=== PATIENT | male | born 1935 | race African-American/Black ===

== ENCOUNTER → 2017-01-01 | Outpatient (CLI) | payer MEDICARE, OTHER ==
[~2017-01-01] MED LIST: ASPI81CH43 PO; ATOR10TA PO; CHOL100029 PO; DORZ1SOL2 OP; METF-312 PO; NIFE90TA30 PO; POTA10TA34 PO; [UNRECOGNIZED DRUG - CODE] PO
[2017-01-01 09:33] LABS: Basophils # (auto) 0 uL; Basophils % (auto) 0.3 % (0.0-2.0); DEFINITIVE VIEW TRANSMISSION; Eosinophils # (auto) 0.3 uL; Eosinophils % (auto) 6.1 % (0.0-7.0); Hematocrit 37.3 % (41.0-53.0); Hemoglobin 11.7 g/dL (13.5-17.5); Lymphocytes # (auto) 1.4 uL; Lymphocytes % (auto) 25.7 % (10.0-50.0); Mean Corpuscular Hemoglobin 26.7 pg (28.0-32.0); Mean Corpuscular Hgb Conc. 31.3 g/dL (32.0-36.0); Mean Corpuscular Volume 85.2 fL (80.0-100.0); Mean Platelet Volume 8.7 fL (7.4-10.4); Monocytes # (auto) 0.6 uL; Monocytes % (auto) 11.6 % (0.0-12.0); Neutrophils # (auto) 3.1 uL; Neutrophils % (auto) 56.3 % (37.0-80.0); Platelet Count (auto) 202 10^3/uL (140-450); Red Cell Distribution Width 14.7 % (11.6-16.0); White Blood Cell 5.4 10^3/uL (4.4-10.8)
[2017-01-01 09:52] LABS: Urine Bilirubin Negative (Negative); Urine Blood Negative /uL (Negative); Urine Color Yellow (Yellow); Urine Glucose Normal (Normal); Urine Ketone Negative (Negative); Urine Mucus FEW (None Seen); Urine Nitrite Negative (Negative); Urine RBC <1 /hpf (0 - 3); Urine Squamous Epithelial Cell FEW /hpf (<5); Urine Urobilinogen Normal (Negative); Urine pH 6.5 (5.0-8.0)
[2017-01-01 10:10] LABS: Albumin 3.8 g/dL (3.4-5.0); BUN/Creatinine Ratio 17.3; Bilirubin, Total 0.4 mg/dL (0.2-1.0); Calcium 8.9 mg/dL (8.5-10.1); Total Protein 7.2 g/dL (6.4-8.2)
[2017-01-01 10:23] LABS: Potassium 3.9 mmol/L (3.5-5.1)
== END | disposition home or self-care (01) ==
LOC: LAB 08:43
DX: E11.42 Type 2 diabetes mellitus with diabetic polyneuropathy (principal); Z00.00 Encounter for general adult medical examination without abnormal findings; D69.6 Thrombocytopenia, unspecified; I10 Essential (primary) hypertension; C61 Malignant neoplasm of prostate
CPT/HCPCS: 36415; 80053; 80061; 81001; 82043; 82570; 83036; 84153; 84439; 84443; 85025

== ENCOUNTER 2017-04-26 16:10 | Inpatient (IN) | payer MEDICARE, OTHER ==
[~2017-04-26] VITALS: Ht 177.8 cm; Wt 78.0 kg
[2017-04-26 17:19] LABS: Basophils # (auto) 0 uL; Basophils % (auto) 0.3 % (0.0-2.0); Eosinophils # (auto) 0.3 uL; Eosinophils % (auto) 4.1 % (0.0-7.0); Hematocrit 35.8 % (41.0-53.0); Hemoglobin 11.7 g/dL (13.5-17.5); Lymphocytes # (auto) 1.9 uL; Mean Corpuscular Hemoglobin 27.8 pg (28.0-32.0); Mean Corpuscular Hgb Conc. 32.7 g/dL (32.0-36.0); Mean Corpuscular Volume 85.2 fL (80.0-100.0); Mean Platelet Volume 9.1 fL (7.4-10.4); Monocytes # (auto) 0.7 uL; Monocytes % (auto) 11.9 % (0.0-12.0); Neutrophils # (auto) 3.3 uL; Neutrophils % (auto) 52.7 % (37.0-80.0); Platelet Count (auto) 189 10^3/uL (140-450); Red Cell Distribution Width 14.9 % (11.6-16.0); White Blood Cell 6.2 10^3/uL (4.4-10.8)
[2017-04-26 17:32] LABS: INR 0.96 (0.9-1.15); Partial Thromboplastin Time 27.5 sec (22.64-33.71); Prothrombin Time 10.5 sec (9.37-12.3)
[2017-04-26 17:48] LABS: Albumin 3.3 g/dL (3.4-5.0); Anion Gap 11 (5-15); Aspartate Aminotransferase 20 U/L (15-37); Blood Urea Nitrogen 17 mg/dL (7-18); Carbon Dioxide 24 mmol/L (21-32); Chloride 108 mmol/L (98-107); GFR African American 131 mL/min; GFR Non-African American 108 mL/min; Glucose 140 mg/dL (74-106); Magnesium 2.1 mg/dL (1.6-2.6); Potassium 3.6 mmol/L (3.5-5.1); Sodium 143 mmol/L (136-145)
[2017-04-26 17:53] LABS: Alkaline Phosphatase 49 U/L (45-117); Bilirubin, Total 0.2 mg/dL (0.2-1.0)
[2017-04-26] MEDS ORDERED: SODIUM CHLORIDE 0.9% 1,000 ML IV SCH (21:46)
[2017-04-26 21:52] LABS: Urine RBC None Seen /hpf (0 - 3)
[2017-04-26] MEDS ORDERED: TEMAZEPAM 15 MG CAP PO PRN (22:00)
[2017-04-26] MEDS ORDERED: HYDROcodone-ACET 5/325MG TAB PO PRN (22:00)
[2017-04-26] MEDS ORDERED: ONDANSETRON HCL 4 MG/2 ML VIAL IV PRN (22:00)
[2017-04-26] MEDS ORDERED: DOCUSATE SOD 100 MG CAP PO PRN (22:00)
[2017-04-26] MEDS ORDERED: MORPHINE SULF INJ 2 MG/ML SYRINGE 1ML IV PRN (22:00)
[2017-04-26] MEDS ORDERED: NITROGLYCERIN 0.4 MG SL TAB SL PRN (22:00)
[2017-04-26] MEDS ORDERED: hydrALAZINE HCL 20 MG/ML VL IV ONE (22:30)
[2017-04-26 22:32] LABS: Urine Bilirubin Negative (Negative); Urine Blood Negative /uL (Negative); Urine Color Yellow (Yellow); Urine Glucose Normal (Normal); Urine Ketone Negative (Negative); Urine Nitrite Negative (Negative); Urine Urobilinogen Normal (Negative); Urine pH 7.5 (5.0-8.0)
[2017-04-26 23:00] VITALS: BP 154/68
[2017-04-27] MEDS: metFORMIN HYDROCHLORIDE 850 MG TAB PO SCH ×2 (00:04→08:26)
[2017-04-27] MEDS: ATORVASTATIN 20 MG TAB PO SCH ×2 (00:05→21:53)
[2017-04-27 04:59] VITALS: BP 128/60
[2017-04-27 05:34] LABS: Basophils # (auto) 0 uL; Basophils % (auto) 0.2 % (0.0-2.0); Eosinophils # (auto) 0.2 uL; Eosinophils % (auto) 3.7 % (0.0-7.0); Hematocrit 34.4 % (41.0-53.0); Hemoglobin 11.7 g/dL (13.5-17.5); Lymphocytes # (auto) 1.4 uL; Lymphocytes % (auto) 23.2 % (10.0-50.0); Mean Corpuscular Hemoglobin 28.6 pg (28.0-32.0); Mean Corpuscular Hgb Conc. 33.9 g/dL (32.0-36.0); Mean Corpuscular Volume 84.5 fL (80.0-100.0); Mean Platelet Volume 8.5 fL (7.4-10.4); Monocytes # (auto) 0.7 uL; Monocytes % (auto) 12.5 % (0.0-12.0); Neutrophils # (auto) 3.6 uL; Neutrophils % (auto) 60.4 % (37.0-80.0); Platelet Count (auto) 191 10^3/uL (140-450); Red Cell Distribution Width 14.9 % (11.6-16.0); White Blood Cell 5.9 10^3/uL (4.4-10.8)
[2017-04-27] MEDS: hydrALAZINE HCL 25 MG TAB PO SCH ×4 (05:56→18:15)
[2017-04-27 06:01] LABS: Potassium 3.5 mmol/L (3.5-5.1)
[2017-04-27 06:09] LABS: Albumin 3.1 g/dL (3.4-5.0); BUN/Creatinine Ratio 20.7; Calcium 8.7 mg/dL (8.5-10.1)
[2017-04-27 06:10] LABS: Bilirubin, Total 0.3 mg/dL (0.2-1.0); Total Protein 6.5 g/dL (6.4-8.2)
[2017-04-27 08:00] VITALS: BP 139/65
[2017-04-27] MEDS ORDERED: metFORMIN HYDROCHLORIDE 850 MG TAB PO SCH (08:00)
[2017-04-27] MEDS ORDERED: metFORMIN HYDROCHLORIDE 500 MG TAB PO SCH (08:00)
[2017-04-27 09:15] VITALS: BP 139/65
[2017-04-27] MEDS ORDERED: LORazepam 0.5 MG TAB PO ONE (09:15)
[2017-04-27] MEDS: LOSARTAN POTASSIUM 50 MG TAB PO SCH (09:32)
[2017-04-27] MEDS: HCTZ 25 MG TAB PO SCH (09:33)
[2017-04-27] MEDS: NIFEdipine ER 30 MG TAB PO SCH (09:33)
[2017-04-27] MEDS: POTASSIUM CHL 10 Meq TABLET PO SCH (09:33)
[2017-04-27] MEDS: CHOLECALCIFEROL (VITD3) 1,000 UNIT TAB PO SCH (09:34)
[2017-04-27] MEDS ORDERED: HYDROCHLOROTHIAZIDE PO SCH (10:00)
[2017-04-27] MEDS ORDERED: ATORVASTATIN 20 MG TAB PO SCH ×2 (10:00→22:00)
[2017-04-27] MEDS ORDERED: ASPirin 81 mg TAB PO SCH (10:00)
[2017-04-27] MEDS ORDERED: IRBESARTAN PO SCH (10:00)
[2017-04-27] MEDS: DORZOLAM-TIMOLOL(2/0.5%) OPTH(EYE) SOLN 10ML EACHEYE SCH (12:50)
[2017-04-27 13:34] VITALS: BP 149/80
[2017-04-27] MEDS ORDERED: LORazepam 2MG/ML-1ML VIAL IV ONE (14:30)
[2017-04-27] MEDS ORDERED: ALPRAZolam 0.25 MG TAB PO PRN (14:30)
[2017-04-27 15:01] LABS: Cholesterol 152 mg/dL (< 200); HDL Cholesterol 52 mg/dL (40-59); LDL Cholesterol 89 mg/dL (< 100); Triglycerides 86 mg/dL (< 150)
[2017-04-27 17:01] VITALS: BP 133/72
[2017-04-27] MEDS: MORPHINE SULF INJ 2 MG/ML SYRINGE 1ML IV PRN ×2 (17:43→21:55)
[2017-04-27] MEDS: GABAPENTIN 100 MG CAP PO SCH (21:53)
[2017-04-27 22:05] VITALS: BP 135/69
[2017-04-28] MEDS: hydrALAZINE HCL 25 MG TAB PO SCH ×4 (00:11→18:04)
[2017-04-28 05:00] VITALS: BP 110/40
[2017-04-28 09:00] VITALS: BP 149/70
[2017-04-28] MEDS ORDERED: LORazepam 2MG/ML-1ML VIAL IV PRN (09:00)
[2017-04-28] MEDS: LOSARTAN POTASSIUM 50 MG TAB PO SCH (10:02)
[2017-04-28] MEDS: GABAPENTIN 100 MG CAP PO SCH ×2 (10:02→21:46)
[2017-04-28] MEDS: HCTZ 25 MG TAB PO SCH (10:02)
[2017-04-28] MEDS: POTASSIUM CHL 10 Meq TABLET PO SCH (10:02)
[2017-04-28] MEDS: CHOLECALCIFEROL (VITD3) 1,000 UNIT TAB PO SCH (10:03)
[2017-04-28] MEDS: ASPIRIN-DIPYRIDAMOLE (25/200MG) CAPSULE PO SCH ×2 (10:03→21:46)
[2017-04-28] MEDS: NIFEdipine ER 30 MG TAB PO SCH (10:03)
[2017-04-28] MEDS: DORZOLAM-TIMOLOL(2/0.5%) OPTH(EYE) SOLN 10ML EACHEYE SCH (10:05)
[2017-04-28 13:00] VITALS: BP 148/79
[2017-04-28 17:00] VITALS: BP 127/59
[2017-04-28 22:00] VITALS: BP 148/71
[2017-04-28] MEDS ORDERED: ATORVASTATIN 20 MG TAB PO SCH (22:00)
[2017-04-29] MEDS: hydrALAZINE HCL 25 MG TAB PO SCH ×3 (00:03→12:46)
[2017-04-29 05:00] VITALS: BP 136/66
[2017-04-29 07:08] LABS: Cholesterol 157 mg/dL (< 200); HDL Cholesterol 56 mg/dL (40-59); LDL Cholesterol 87 mg/dL (< 100); Triglycerides 82 mg/dL (< 150)
[2017-04-29 09:00] VITALS: BP 150/75
[2017-04-29] MEDS: ASPIRIN-DIPYRIDAMOLE (25/200MG) CAPSULE PO SCH (10:34)
[2017-04-29] MEDS: NIFEdipine ER 30 MG TAB PO SCH (10:34)
[2017-04-29] MEDS: GABAPENTIN 100 MG CAP PO SCH (10:34)
[2017-04-29] MEDS: LOSARTAN POTASSIUM 50 MG TAB PO SCH (10:35)
[2017-04-29] MEDS: CHOLECALCIFEROL (VITD3) 1,000 UNIT TAB PO SCH (10:36)
[2017-04-29] MEDS: DORZOLAM-TIMOLOL(2/0.5%) OPTH(EYE) SOLN 10ML EACHEYE SCH (10:36)
[2017-04-29] MEDS: HCTZ 25 MG TAB PO SCH (10:36)
[2017-04-29] MEDS: POTASSIUM CHL 10 Meq TABLET PO SCH (10:36)
[2017-04-29 12:52] VITALS: BP 131/63
== END 2017-04-29 16:00 | disposition home or self-care (01) | DRG 65 ==
LOC: ER 16:10 → TELE 16:11 → TELE-WESTW 22:57
PROVIDERS: ADMIT Emergency Medicine; ATTEND Internal Medicine
DX: I63.9 Cerebral infarction, unspecified (principal); G81.91 Hemiplegia, unspecified affecting right dominant side; I10 Essential (primary) hypertension; E78.5 Hyperlipidemia, unspecified; E11.42 Type 2 diabetes mellitus with diabetic polyneuropathy; D64.9 Anemia, unspecified; F17.210 Nicotine dependence, cigarettes, uncomplicated; R26.2 Difficulty in walking, not elsewhere classified; R47.1 Dysarthria and anarthria; H40.9 Unspecified glaucoma; F41.9 Anxiety disorder, unspecified; K59.00 Constipation, unspecified; G47.00 Insomnia, unspecified; R26.89 Other abnormalities of gait and mobility; Z79.899 Other long term (current) drug therapy; Z82.3 Family history of stroke; Z82.49 Family history of ischemic heart disease and other diseases of the circulatory system; Z83.3 Family history of diabetes mellitus; Z85.46 Personal history of malignant neoplasm of prostate; Z80.8 Family history of malignant neoplasm of other organs or systems; Z88.0 Allergy status to penicillin; Z79.82 Long term (current) use of aspirin
CPT/HCPCS: 36415; 70450; 70545; 70551; 71010; 80053; 80061; 81001; 82962; 83735; 84484; 85025; 85610; 85730; 93005; 93306; 93886; 94761; 96374; 97110; 97116; 97163; 97530

== ENCOUNTER → 2017-06-11 | Outpatient (CLI) | payer MEDICARE, OTHER ==
[~2017-06-11] MED LIST changes: -METF-312 PO; +METF-370 PO
== END | disposition home or self-care (01) ==
LOC: LAB 15:34
DX: C61 Malignant neoplasm of prostate (principal)
CPT/HCPCS: 84153

== ENCOUNTER → 2017-07-08 | Outpatient (CLI) | payer MEDICARE, OTHER ==
[2017-07-08 15:05] LABS: Body Fluid Polymorphonuclear 55 %
== END | disposition home or self-care (01) ==
LOC: LAB 09:53
DX: M10.00 Idiopathic gout, unspecified site (principal)
CPT/HCPCS: 36415; 84550; 87070; 87205; 89051; 89060

== ENCOUNTER → 2017-07-21 | Outpatient (CLI) | payer MEDICARE, OTHER ==
[2017-07-21 11:14] LABS: Albumin 4.1 g/dL (3.4-5.0); BUN/Creatinine Ratio 21.1; Bilirubin, Total 0.5 mg/dL (0.2-1.0); Calcium 9.5 mg/dL (8.5-10.1); Potassium 3.8 mmol/L (3.5-5.1)
== END | disposition home or self-care (01) ==
LOC: LAB 09:59
PROVIDERS: ATTEND Psychiatry & Neurology Neurology
DX: G46.3 Brain stem stroke syndrome (principal); R26.1 Paralytic gait
CPT/HCPCS: 36415; 80053

== ENCOUNTER → 2017-12-07 | Outpatient (CLI) | payer MEDICARE, OTHER | END | disposition home or self-care (01) | LOC: LAB 12:46 | DX: C61 Malignant neoplasm of prostate (principal) | CPT/HCPCS: 84153 ==

== ENCOUNTER → 2017-12-23 | Outpatient (CLI) | payer MEDICARE, OTHER | END | disposition home or self-care (01) | LOC: XY 08:07 | PROVIDERS: ATTEND Internal Medicine | DX: I08.0 Rheumatic disorders of both mitral and aortic valves (principal); I10 Essential (primary) hypertension | CPT/HCPCS: 93306 ==

== ENCOUNTER → 2018-02-16 | Outpatient (CLI) | payer MEDICARE, OTHER ==
[2018-02-16 09:31] LABS: Basophils # (auto) 0 uL; Basophils % (auto) 0.4 % (0.0-2.0); Eosinophils # (auto) 0.2 uL; Hematocrit 32.4 % (41.0-53.0); Hemoglobin 10.5 g/dL (13.5-17.5); Lymphocytes # (auto) 1.4 uL; Lymphocytes % (auto) 26.6 % (10.0-50.0); Mean Corpuscular Hemoglobin 28.5 pg (28.0-32.0); Mean Corpuscular Hgb Conc. 32.4 g/dL (32.0-36.0); Monocytes # (auto) 0.8 uL; Monocytes % (auto) 14.4 % (0.0-12.0); Neutrophils # (auto) 2.9 uL; Neutrophils % (auto) 54.6 % (37.0-80.0); Nucleated Red Blood Cells % 0.1 %; Platelet Count (auto) 150 10^3/uL (140-450); Red Blood Cells 3.69 10^6/uL (4.5-5.90); Red Cell Distribution Width 14.2 % (11.8-14.3); White Blood Cell 5.3 10^3/uL (4.4-10.8)
[2018-02-16 09:38] LABS: Urine Bacteria NONE SEEN /hpf (None Seen); Urine Blood Negative /uL (Negative); Urine Specific Gravity 1.018 (1.001-1.035); Urine WBC 3 /hpf (0 - 3)
[2018-02-16 10:01] LABS: Albumin 3.6 g/dL (3.4-5.0); BUN/Creatinine Ratio 22.1; Bilirubin, Total 0.5 mg/dL (0.2-1.0); Calcium 8.5 mg/dL (8.5-10.1); Potassium 4.5 mmol/L (3.5-5.1)
[2018-02-16 10:34] LABS: Free T4 (Free Thyroxine) 1.32 ng/dL (0.89-1.76)
[2018-02-16 10:35] LABS: T3 Total 1.14 ng/mL (0.60-1.81)
[2018-02-18 10:31] LABS: Hepatitis B Surface Antigen Negative (Negative)
[2018-02-18 10:54] LABS: Hepatitis B Core IgM Negative; Hepatitis C Antibody Negative (Negative)
[2018-02-18 10:56] LABS: Hepatitis A Ab IgM Negative
== END | disposition home or self-care (01) ==
LOC: LAB 08:59
PROVIDERS: ATTEND Internal Medicine
DX: I10 Essential (primary) hypertension (principal); N28.1 Cyst of kidney, acquired; E11.9 Type 2 diabetes mellitus without complications; R79.89 Other specified abnormal findings of blood chemistry; Z79.899 Other long term (current) drug therapy
CPT/HCPCS: 36415; 80053; 80061; 80074; 81001; 82607; 83036; 84403; 84439; 84443; 84480; 85025

== ENCOUNTER → 2018-03-01 | Outpatient (CLI) | payer MEDICARE, OTHER | END | disposition home or self-care (01) | LOC: LAB 08:21 | PROVIDERS: ATTEND Internal Medicine | DX: Z01.812 Encounter for preprocedural laboratory examination (principal); I10 Essential (primary) hypertension; E11.9 Type 2 diabetes mellitus without complications; Z79.899 Other long term (current) drug therapy | CPT/HCPCS: 36415; 82565; 84520 ==

== ENCOUNTER → 2018-03-22 | Outpatient (CLI) | payer MEDICARE, OTHER ==
[2018-03-22 09:38] LABS: Basophils # (auto) 0 uL; Basophils % (auto) 0.4 % (0.0-2.0); Eosinophils # (auto) 0.2 uL; Eosinophils % (auto) 3.7 % (0.0-7.0); Hemoglobin 10.9 g/dL (13.5-17.5); Lymphocytes # (auto) 0.9 uL; Mean Corpuscular Hemoglobin 28.7 pg (28.0-32.0); Mean Corpuscular Hgb Conc. 33.1 g/dL (32.0-36.0); Mean Corpuscular Volume 86.8 fL (80.0-100.0); Monocytes # (auto) 0.9 uL; Neutrophils # (auto) 3.7 uL; Neutrophils % (auto) 63.9 % (37.0-80.0); Nucleated Red Blood Cells % 0.1 %; Platelet Count (auto) 113 10^3/uL (140-450); Red Cell Distribution Width 14.3 % (11.8-14.3); White Blood Cell 5.8 10^3/uL (4.4-10.8)
[2018-03-22 10:42] LABS: Albumin 3.4 g/dL (3.4-5.0); BUN/Creatinine Ratio 13.6; Bilirubin, Total 0.3 mg/dL (0.2-1.0); Calcium 9.3 mg/dL (8.5-10.1); Potassium 4.6 mmol/L (3.5-5.1); Total Protein 6.9 g/dL (6.4-8.2)
== END | disposition home or self-care (01) ==
LOC: LAB 08:49
PROVIDERS: ATTEND Physician Assistant
DX: I10 Essential (primary) hypertension (principal); E78.5 Hyperlipidemia, unspecified; E11.9 Type 2 diabetes mellitus without complications; I65.23 Occlusion and stenosis of bilateral carotid arteries; R35.1 Nocturia; Z85.46 Personal history of malignant neoplasm of prostate; Z79.899 Other long term (current) drug therapy
CPT/HCPCS: 36415; 80053; 80061; 83036; 84153; 85025

== ENCOUNTER → 2018-10-25 | Outpatient (CLI) | payer MEDICARE, OTHER ==
[~2018-10-25] MED LIST changes: -POTA10TA34 PO; +POTA1TAB61 PO
[2018-10-25 10:33] LABS: Cholesterol 239 mg/dL (< 200)
[2018-10-25 10:36] LABS: Creatine Kinase IFCC 144 U/L (39-308); HDL Cholesterol 56 mg/dL (40-59); LDL Cholesterol 171 mg/dL (< 100); Triglycerides 129 mg/dL (< 150)
== END | disposition home or self-care (01) ==
LOC: LAB 09:06
PROVIDERS: ATTEND Psychiatry & Neurology Neurology
DX: I63.9 Cerebral infarction, unspecified (principal); E11.9 Type 2 diabetes mellitus without complications
CPT/HCPCS: 36415; 80061; 82550; 83036

== ENCOUNTER → 2018-12-14 | Outpatient (CLI) | payer MEDICARE, OTHER ==
[2018-12-14 10:47] LABS: Anion Gap 5 (5-15); BUN/Creatinine Ratio 19.7; Blood Urea Nitrogen 23 mg/dL (7-18); Calcium 8.9 mg/dL (8.5-10.1); Carbon Dioxide 27 mmol/L (21-32); Chloride 109 mmol/L (98-107); GFR African American > 60 mL/min; GFR Non-African American > 60 mL/min; Glucose 140 mg/dL (74-106); Potassium 3.8 mmol/L (3.5-5.1); Sodium 141 mmol/L (136-145)
== END | disposition home or self-care (01) ==
LOC: LAB 10:17
DX: I10 Essential (primary) hypertension (principal); R97.20 Elevated prostate specific antigen [PSA]
CPT/HCPCS: 36415; 80048

== ENCOUNTER → 2019-01-20 | Outpatient (CLI) | payer MEDICARE, OTHER ==
[2019-01-20 12:16] LABS: Basophils # (auto) 0 uL; Basophils % (auto) 0.7 % (0.0-2.0); Eosinophils # (auto) 0.3 uL; Hemoglobin 10.3 g/dL (13.5-17.5); Lymphocytes # (auto) 1.2 uL; Monocytes # (auto) 0.6 uL; Neutrophils # (auto) 2.4 uL; White Blood Cell 4.5 10^3/uL (4.4-10.8)
[2019-01-20 12:18] LABS: Eosinophils % (auto) 6.1 % (0.0-7.0); Hematocrit 31.8 % (41.0-53.0); Lymphocytes % (auto) 26.8 % (10.0-50.0); Mean Corpuscular Hemoglobin 26.5 pg (28.0-32.0); Mean Corpuscular Hgb Conc. 32.5 g/dL (32.0-36.0); Mean Corpuscular Volume 81.6 fL (80.0-100.0); Monocytes % (auto) 12.9 % (0.0-12.0); Neutrophils % (auto) 53.5 % (37.0-80.0); Nucleated Red Blood Cells % 0.1 %; Platelet Count (auto) 195 10^3/uL (140-450); Red Cell Distribution Width 15.6 % (11.8-14.3)
[2019-01-20 12:36] LABS: CRP High Sensitivity 0.39 mg/dL (< 0.3)
== END | disposition home or self-care (01) ==
LOC: LAB 11:03
PROVIDERS: ATTEND Psychiatry & Neurology Neurology
DX: G72.9 Myopathy, unspecified (principal); I10 Essential (primary) hypertension; E11.9 Type 2 diabetes mellitus without complications
CPT/HCPCS: 36415; 80061; 82550; 84075; 84080; 84450; 84460; 85025; 85652; 86038; 86141

== ENCOUNTER 2020-06-21 07:47 | Emergency (ER) | payer MEDICARE, OTHER ==
[~2020-06-21] VITALS: Ht 154.9 cm; Wt 73.9 kg
[~2020-06-21 07:47] MED LIST changes: -NIFE90TA30 PO; +NIFE90TA49 PO
[2020-06-21 08:40] LABS: Basophils # (auto) 0.1 10 ^3/uL (0-0.2); Eosinophils # (auto) 0.3 10 ^3/uL (0-0.8); Hematocrit 32.8 % (41.0-53.0); Hemoglobin 10.6 g/dL (13.5-17.5); Lymphocytes # (auto) 1.1 10 ^3/uL (0.4-5.4); Mean Corpuscular Hgb Conc. 32.2 g/dL (32.0-36.0); Monocytes # (auto) 0.9 10 ^3/uL (0-1.3); Red Blood Cells 4.08 10^6/uL (4.5-5.90)
[2020-06-21 08:42] LABS: Basophils % (auto) 0.8 % (0.0-2.0); Eosinophils % (auto) 3.7 % (0.0-7.0); Lymphocytes % (auto) 13.5 % (10.0-50.0); Mean Corpuscular Hemoglobin 25.8 pg (28.0-32.0); Mean Corpuscular Volume 80.3 fL (80.0-100.0); Monocytes % (auto) 11.6 % (0.0-12.0); Neutrophils # (auto) 5.5 10 ^3/uL (1.6-8.6); Neutrophils % (auto) 70.4 % (37.0-80.0); Nucleated Red Blood Cells % 0.1 %; Platelet Count (auto) 328 10^3/uL (140-450); Red Cell Distribution Width 13.8 % (11.8-14.3); White Blood Cell 7.8 10^3/uL (4.4-10.8)
[2020-06-21 08:56] LABS: INR 1.01 (0.9-1.15); Partial Thromboplastin Time 31.3 sec (23.64-32.05)
[2020-06-21 09:01] LABS: Albumin 3.5 g/dL (3.4-5.0); Anion Gap 6 (5-15); BUN/Creatinine Ratio 15.3; Blood Urea Nitrogen 17 mg/dL (7-18); Carbon Dioxide 26 mmol/L (21-32); Chloride 102 mmol/L (98-107); GFR African American 81 mL/min; GFR Non-African American 67 mL/min; Glucose 135 mg/dL (74-106); Potassium 3.7 mmol/L (3.5-5.1); Sodium 134 mmol/L (136-145)
[2020-06-21 09:06] LABS: Alanine Aminotransferase 17 U/L (16-61); Alkaline Phosphatase 66 U/L (45-117); Aspartate Aminotransferase 14 U/L (15-37); Bilirubin, Total 0.4 mg/dL (0.2-1.0); Total Protein 7.8 g/dL (6.4-8.2)
[2020-06-21 09:26] VITALS: BP 115/60
[2020-06-21] MEDS ORDERED: levoFLOXacin 500 MG TAB PO ONE (09:45)
== END 2020-06-21 11:33 | disposition home or self-care (01) ==
LOC: ER 07:47
DX: J18.9 Pneumonia, unspecified organism (principal); D63.8 Anemia in other chronic diseases classified elsewhere; E11.9 Type 2 diabetes mellitus without complications; E78.5 Hyperlipidemia, unspecified; I10 Essential (primary) hypertension; Z86.73 Personal history of transient ischemic attack (TIA), and cerebral infarction without residual deficits; Z88.0 Allergy status to penicillin; Z20.828 Contact with and (suspected) exposure to other viral communicable diseases
CPT/HCPCS: 36415; 71046; 80053; 84484; 85025; 85610; 85730; 93005; 99285; U0003

== ENCOUNTER 2020-06-22 04:47 | Emergency (ER) | payer MEDICARE, OTHER ==
[~2020-06-22] VITALS: Ht 177.8 cm; Wt 73.9 kg
[2020-06-22 05:01] VITALS: BP 161/74
[2020-06-22 05:53] LABS: Basophils # (auto) 0.1 10 ^3/uL (0-0.2); Eosinophils # (auto) 0.2 10 ^3/uL (0-0.8); Lymphocytes # (auto) 0.8 10 ^3/uL (0.4-5.4); Neutrophils # (auto) 5.6 10 ^3/uL (1.6-8.6); White Blood Cell 7.6 10^3/uL (4.4-10.8)
[2020-06-22 05:55] LABS: Basophils % (auto) 1.2 % (0.0-2.0); Eosinophils % (auto) 2.4 % (0.0-7.0); Hematocrit 31.2 % (41.0-53.0); Hemoglobin 10.2 g/dL (13.5-17.5); Lymphocytes % (auto) 10.7 % (10.0-50.0); Mean Corpuscular Hgb Conc. 32.6 g/dL (32.0-36.0); Mean Corpuscular Volume 79.6 fL (80.0-100.0); Monocytes % (auto) 12.7 % (0.0-12.0); Platelet Count (auto) 292 10^3/uL (140-450); Red Blood Cells 3.93 10^6/uL (4.5-5.90); Red Cell Distribution Width 13.9 % (11.8-14.3)
[2020-06-22 06:03] LABS: Albumin 3.2 g/dL (3.4-5.0); Anion Gap 8 (5-15); Blood Urea Nitrogen 16 mg/dL (7-18); Carbon Dioxide 24 mmol/L (21-32); Chloride 101 mmol/L (98-107); Glucose 136 mg/dL (74-106); Magnesium 2.4 mg/dL (1.6-2.6); Potassium 3.9 mmol/L (3.5-5.1); Sodium 133 mmol/L (136-145)
[2020-06-22 06:12] LABS: Alanine Aminotransferase 18 U/L (16-61); Alkaline Phosphatase 64 U/L (45-117); Aspartate Aminotransferase 25 U/L (15-37); BUN/Creatinine Ratio 14.8; Bilirubin, Total 0.4 mg/dL (0.2-1.0); GFR African American 84 mL/min; GFR Non-African American 69 mL/min; Total Protein 7.5 g/dL (6.4-8.2)
== END 2020-06-22 06:00 | disposition left against medical advice (07) ==
LOC: EDBD 04:47 → ER 04:47
DX: R06.02 Shortness of breath (principal); Z53.21 Procedure and treatment not carried out due to patient leaving prior to being seen by health care provider
CPT/HCPCS: 36415; 80053; 82728; 83735; 83880; 84484; 85025; 93005

== ENCOUNTER 2020-07-13 14:54 | Inpatient (IN) | payer MEDICARE, OTHER ==
[~2020-07-13] VITALS: Ht 177.8 cm; Wt 64.5 kg
[2020-07-13 16:15] LABS: Basophils # (auto) 0 10 ^3/uL (0-0.2); Basophils % (auto) 0.5 % (0.0-2.0); Eosinophils # (auto) 0.2 10 ^3/uL (0-0.8); Eosinophils % (auto) 2.6 % (0.0-7.0); Hematocrit 31.5 % (41.0-53.0); Hemoglobin 10.1 g/dL (13.5-17.5); Lymphocytes # (auto) 1.3 10 ^3/uL (0.4-5.4); Mean Corpuscular Hemoglobin 25.3 pg (28.0-32.0); Mean Corpuscular Hgb Conc. 32.2 g/dL (32.0-36.0); Mean Corpuscular Volume 78.7 fL (80.0-100.0); Monocytes # (auto) 0.8 10 ^3/uL (0-1.3); Neutrophils # (auto) 6.1 10 ^3/uL (1.6-8.6); Neutrophils % (auto) 71.9 % (37.0-80.0); Platelet Count (auto) 206 10^3/uL (140-450); White Blood Cell 8.5 10^3/uL (4.4-10.8)
[2020-07-13] MEDS ORDERED: SPIRONOLACTONE 25 MG TAB PO ONE (16:15)
[2020-07-13] MEDS ORDERED: NIFEdipine 10 MG CAP PO ONE (16:15)
[2020-07-13 16:25] LABS: Albumin 3.2 g/dL (3.4-5.0); Anion Gap 8 (5-15); Blood Urea Nitrogen 15 mg/dL (7-18); Calcium 8.9 mg/dL (8.5-10.1); Carbon Dioxide 24 mmol/L (21-32); Chloride 104 mmol/L (98-107); Glucose 237 mg/dL (74-106); Potassium 3.6 mmol/L (3.5-5.1); Sodium 136 mmol/L (136-145)
[2020-07-13 16:33] LABS: Alanine Aminotransferase 25 U/L (16-61); Alkaline Phosphatase 75 U/L (45-117); Aspartate Aminotransferase 14 U/L (15-37); BUN/Creatinine Ratio 15.3; Bilirubin, Total 0.3 mg/dL (0.2-1.0); GFR African American 94 mL/min; GFR Non-African American 77 mL/min; Lactate Dehydrogenase 166 U/L (87-241); Total Protein 6.8 g/dL (6.4-8.2)
[2020-07-13 16:37] LABS: INR 0.99 (0.9-1.15)
[2020-07-13 18:47] LABS: Urine WBC None Seen /hpf (0 - 3)
[2020-07-13 19:15] LABS: Urine Bacteria NONE SEEN /hpf (None Seen); Urine Blood Negative /uL (Negative); Urine Mucus FEW (None Seen); Urine Specific Gravity 1.016 (1.001-1.035)
[2020-07-13] MEDS ORDERED: NITROGLYCERIN 0.4 MG SL TAB SL PRN (19:15)
[2020-07-13] MEDS ORDERED: ALBUTEROL SULF 2.5 MG/0.5ML(0.5%) NEB SOLN NEB PRN (19:15)
[2020-07-13] MEDS ORDERED: ACETAMINOPHEN 500 MG TAB PO PRN (19:15)
[2020-07-13] MEDS ORDERED: DEXTROSE (50%) 50ML SYRG IV PRN (19:15)
[2020-07-13] MEDS ORDERED: MORPHINE SULF INJ 2 MG/ML SYRINGE 1ML IV PRN ×2 (19:15)
[2020-07-13] MEDS ORDERED: TEMAZEPAM 15 MG CAP PO PRN (19:15)
[2020-07-13] MEDS ORDERED: ONDANSETRON HCL 4 MG/2 ML VIAL IV PRN (19:15)
--- NOTE | 2020-07-13 20:00 | NUR ---
Respiratory note: PT ASSESSED FOR PRN MED NEB TX. HR 81, RR 20, SPO2 95% ON RA. NO S/S OF ANY RESPIRATORY DISTRESS NOTED. ADVISED PT TO CALL IF TX IS NEEDED.
[2020-07-13 20:51] VITALS: BP 112/58
[2020-07-13] MEDS: DORZOLAM-TIMOLOL(2/0.5%) OPTH(EYE) SOLN 10ML OP SCH (22:12)
[2020-07-13] MEDS: GABAPENTIN 100 MG CAP PO SCH (22:12)
[2020-07-13] MEDS: CLINDAMYCIN 600MG IV 50 ML IV SCH (22:12)
[2020-07-13] MEDS: ACCU-CHEK COMFORT CURVE STRIP VI SCH (22:12)
[2020-07-13] MEDS: CARVEDILOL 3.125 MG TAB PO SCH (22:13)
[2020-07-13] MEDS: InsuLIN REG 1unit/0.01ml Soln (100units/ml) SC SCH (22:25)
--- NOTE | 2020-07-13 23:00 | NUR ---
TELE admit from ED pt arrive via wheelchair awake alert and oriented x4. pt on room air with no distress noted or expressed. pt oriented to this nurse as well as room, bed control, restroom and use of call light. pt updated on plan of care. pt denies any pain. pt reports he is short of breath upon exertion. pt is tele 9 showing nsr at 70bpm. pt bed locked, low and 2x rails up. call light in reach, this nurse to round q1hr and prn. pt encouraged to call as needed.
[2020-07-14] MEDS ORDERED: IPRATROPIUM BROM 0.5 MG/2.5ML INH SOL NEB SCH
[2020-07-14] MEDS ORDERED: ALBUTEROL SULF 2.5 MG/0.5ML(0.5%) NEB SOLN NEB SCH
[2020-07-14 05:24] LABS: Basophils # (auto) 0.1 10 ^3/uL (0-0.2); Basophils % (auto) 0.7 % (0.0-2.0); Eosinophils # (auto) 0.2 10 ^3/uL (0-0.8); Eosinophils % (auto) 3.3 % (0.0-7.0); Hematocrit 31.8 % (41.0-53.0); Hemoglobin 10.1 g/dL (13.5-17.5); Lymphocytes # (auto) 1.2 10 ^3/uL (0.4-5.4); Lymphocytes % (auto) 16.9 % (10.0-50.0); Mean Corpuscular Hemoglobin 25.4 pg (28.0-32.0); Mean Corpuscular Hgb Conc. 31.9 g/dL (32.0-36.0); Mean Corpuscular Volume 79.7 fL (80.0-100.0); Monocytes # (auto) 0.9 10 ^3/uL (0-1.3); Monocytes % (auto) 12.1 % (0.0-12.0); Neutrophils # (auto) 4.9 10 ^3/uL (1.6-8.6); Nucleated Red Blood Cells % 0.1 %; Platelet Count (auto) 169 10^3/uL (140-450); Red Blood Cells 3.99 10^6/uL (4.5-5.90); Red Cell Distribution Width 14.5 % (11.8-14.3); White Blood Cell 7.3 10^3/uL (4.4-10.8)
[2020-07-14 05:26] VITALS: BP 129/72
--- NOTE | 2020-07-14 06:00 | NUR ---
Patient came from COVID-Unit RM 234 to MED/TELE RM 292B. Patient brought to unit with all belongings via wheelchair. Patient AOx4, no s/s of distress or SOB and no pain noted. Will continue to monitor.
[2020-07-14] MEDS: CLINDAMYCIN 600MG IV 50 ML IV SCH ×3 (06:08→20:58)
[2020-07-14] MEDS: InsuLIN REG 1unit/0.01ml Soln (100units/ml) SC SCH ×4 (06:43→21:43)
[2020-07-14] MEDS: ACCU-CHEK COMFORT CURVE STRIP VI SCH ×4 (06:43→21:43)
--- NOTE | 2020-07-14 07:00 | NUR ---
Endorsed care to Patricia RN
--- NOTE | 2020-07-14 07:30 | NUR ---
Opening Shift Note: Assumed care of patient, awake and alert. No S/S of distress/SOB or pain. Bed in lowest locked position, side rails up x 2, call light within reach. Patient instructed on POC and to call for assist PRN, will continue to monitor for changes Q1hr and PRN.
[2020-07-14 09:00] VITALS: BP 149/81
[2020-07-14] MEDS: POTASSIUM CHL 10 Meq TABLET PO SCH (09:45)
[2020-07-14] MEDS: CHOLECALCIFEROL (VITD3) 1,000UNIT=25mCg TAB PO SCH (09:45)
[2020-07-14] MEDS: ATORVASTATIN 20 MG TAB PO SCH (09:45)
[2020-07-14] MEDS: levoFLOXacin 500MG 100 ML IV SCH (09:45)
[2020-07-14] MEDS: CARVEDILOL 3.125 MG TAB PO SCH ×2 (09:46→22:03)
[2020-07-14] MEDS: NIFEdipine ER 30 MG TAB PO SCH (09:46)
[2020-07-14] MEDS: IRBESARTAN HYDROCHLOROTHIAZIDE PO SCH (10:00)
--- NOTE | 2020-07-14 10:28 | NUR ---
DR. REHMAN: Dr. Mae at bedside. Discussed POC with patient.
[2020-07-14] MEDS: DORZOLAM-TIMOLOL(2/0.5%) OPTH(EYE) SOLN 10ML OP SCH ×2 (12:19→21:53)
[2020-07-14 13:00] VITALS: BP 145/67
[2020-07-14 17:00] VITALS: BP 132/74
--- NOTE | 2020-07-14 18:46 | NUR ---
CLOSING NOTE: Patient resting in bed. No S/S of distress at this time. Care endorsed to NOC RN.
--- NOTE | 2020-07-14 18:46 | NUR ---
PT ASSESSED FOR PRN MED NEB TX. SPO2 96% ON RA, HR 78. PT DENIES ANY RESPIRATORY DISTRESS. NO TX INDICATED. PT DENIES USE OF MED NEB OR INHALER AT HOME. PT IS AWARE TO HAVE RT PAGED IF NEEDED.
--- NOTE | 2020-07-14 19:28 | NUR ---
Opening Shift Note: Assumed care of patient, awake and alert. No S/S of distress/SOB. Bed in lowest locked position, side rails, up x 2, call light within reach. Patient instructed on POC and to call for assistance PRN, will continue to monitor for changes Q1hr and PRN.
[2020-07-14 22:00] VITALS: BP 130/69
[2020-07-14] MEDS: GABAPENTIN 100 MG CAP PO SCH (22:03)
--- NOTE | 2020-07-15 02:26 | NUR ---
Patient rounding No sob or distress noted. Patient is asleep, chest evenly rising, call light within reach, will continue to monitor.
[2020-07-15 05:00] VITALS: BP 116/65
[2020-07-15] MEDS: CLINDAMYCIN 600MG IV 50 ML IV SCH ×3 (06:00→21:09)
[2020-07-15] MEDS: ACCU-CHEK COMFORT CURVE STRIP VI SCH ×4 (06:11→21:10)
[2020-07-15] MEDS: InsuLIN REG 1unit/0.01ml Soln (100units/ml) SC SCH ×4 (06:11→21:20)
--- NOTE | 2020-07-15 06:59 | NUR ---
Closing note Endorsed care to day shift RN no sob or distress noted.
--- NOTE | 2020-07-15 07:13 | NUR ---
Opening Shift Note: Assumed care of patient. Patient asleep at this time. No S/S of distress/SOB or pain. Bed in lowest locked position, side rails up x 2, call light within reach. Patient will be instructed on POC and to call for assist PRN, will continue to monitor for changes Q1hr and PRN.
[2020-07-15] MEDS: levoFLOXacin 500MG 100 ML IV SCH (09:24)
[2020-07-15 09:25] VITALS: BP 135/62
[2020-07-15] MEDS: CARVEDILOL 3.125 MG TAB PO SCH ×2 (09:25→21:10)
[2020-07-15] MEDS: IRBESARTAN HYDROCHLOROTHIAZIDE PO SCH (09:25)
[2020-07-15] MEDS: DORZOLAM-TIMOLOL(2/0.5%) OPTH(EYE) SOLN 10ML OP SCH ×2 (09:25→21:09)
[2020-07-15] MEDS: ATORVASTATIN 20 MG TAB PO SCH (09:26)
[2020-07-15] MEDS: POTASSIUM CHL 10 Meq TABLET PO SCH (09:26)
[2020-07-15] MEDS: NIFEdipine ER 30 MG TAB PO SCH (09:26)
[2020-07-15] MEDS: CHOLECALCIFEROL (VITD3) 1,000UNIT=25mCg TAB PO SCH (09:27)
--- NOTE | 2020-07-15 10:29 | NUR ---
DR. REHMAN: Dr. Mae at bedside. Discussed POC with patient.
--- NOTE | 2020-07-15 10:33 | NUR ---
IV insertion: IV access obtained, via clean sterile technique by inserting 22 gauge catheter at right hand after 2 attempta. IV secured properly. No trauma to site. Patient tolerated well. IV removal: Left AC IV DC'd with clean sterile technique, catheter fully intact. Pressure dressing applied to site. Patient tolerated well.
[2020-07-15 13:00] VITALS: BP 118/69
[2020-07-15 16:39] VITALS: BP 124/68
--- NOTE | 2020-07-15 18:50 | NUR ---
CLOSING NOTE: Patient resting in bed. No S/S of distress. Care endorsed.
--- NOTE | 2020-07-15 19:25 | NUR ---
Opening shift note Assumed care of patient who is A&Ox4, respirations even and non-labored with no s/s of distress. Discussed POC with patient who verbalized understanding. Bed in lowest locked position with 2 side rails up, call light within reach. Advised patient to call for assistance. Will continue to monitor Q1hr and PRN.
[2020-07-15] MEDS ORDERED: ZOLPIDEM TARTRATE 5 MG TAB PO PRN (21:00)
[2020-07-15] MEDS: GABAPENTIN 100 MG CAP PO SCH (21:10)
[2020-07-15 22:00] VITALS: BP 133/58
[2020-07-16 05:00] VITALS: BP 125/69
[2020-07-16] MEDS: InsuLIN REG 1unit/0.01ml Soln (100units/ml) SC SCH ×4 (05:58→21:57)
[2020-07-16] MEDS: ACCU-CHEK COMFORT CURVE STRIP VI SCH ×4 (05:58→21:46)
[2020-07-16] MEDS: CLINDAMYCIN 600MG IV 50 ML IV SCH ×3 (06:06→21:45)
[2020-07-16] MEDS: IRBESARTAN HYDROCHLOROTHIAZIDE PO SCH (08:54)
[2020-07-16 09:00] VITALS: BP 142/70
--- NOTE | 2020-07-16 09:26 | NUR ---
PT IN ULTRASOUND FOR A THORACENTESIS WITH DR HERNÁNDEZ. VSS 136/58-71-16-96%. 1800 ML OF BURBUNDY COLORED FLUID REMOVED AND SENT TO LAB.
[2020-07-16] MEDS: ATORVASTATIN 20 MG TAB PO SCH (10:26)
[2020-07-16] MEDS: DORZOLAM-TIMOLOL(2/0.5%) OPTH(EYE) SOLN 10ML OP SCH ×2 (10:26→21:45)
[2020-07-16] MEDS: POTASSIUM CHL 10 Meq TABLET PO SCH (10:26)
[2020-07-16] MEDS: levoFLOXacin 500MG 100 ML IV SCH (10:26)
[2020-07-16] MEDS: NIFEdipine ER 30 MG TAB PO SCH (10:26)
[2020-07-16] MEDS: CARVEDILOL 3.125 MG TAB PO SCH ×2 (10:27→21:44)
[2020-07-16] MEDS: CHOLECALCIFEROL (VITD3) 1,000UNIT=25mCg TAB PO SCH (10:27)
[2020-07-16] MEDS: traMADol HCL 50 MG TAB PO PRN ×3 (11:30→21:45)
[2020-07-16 13:00] VITALS: BP 120/66
[2020-07-16 16:44] VITALS: BP 112/54
--- NOTE | 2020-07-16 18:58 | NUR ---
CLOSING NOTE: Patient resting in bed. No S/S of distress at this time. Care endorsed.
--- NOTE | 2020-07-16 19:30 | NUR ---
Opening shift note Assumed care of patient who is A&OX4, respirations even and non-labored with no s/s of distress. Discussed POC with patient who verbalized understanding. Bed in lowest locked position with 2 side rails up, urinal bedside, call light within reach. Advised patient to call for assistance. Will continue to monitor.
[2020-07-16] MEDS: GABAPENTIN 100 MG CAP PO SCH (21:46)
--- NOTE | 2020-07-16 22:00 | NUR ---
Pain Patient c/o 05/09 right posterior back pain from procedure earlier. Administered 50 mg Tramadol per EMAR. Will continue to monitor.
[2020-07-16 22:21] VITALS: BP 136/77
--- NOTE | 2020-07-16 22:30 | NUR ---
Pain Reassessed Patient resting with eyes closed, respirations even and non-labored with no s/s of distress. Will continue to monitor.
[2020-07-17] MEDS: ACCU-CHEK COMFORT CURVE STRIP VI SCH ×2 (04:58→11:29)
[2020-07-17] MEDS: InsuLIN REG 1unit/0.01ml Soln (100units/ml) SC SCH ×2 (04:58→11:29)
[2020-07-17 05:00] VITALS: BP 101/67
[2020-07-17] MEDS: CLINDAMYCIN 600MG IV 50 ML IV SCH ×2 (05:45→13:10)
--- NOTE | 2020-07-17 07:30 | NUR ---
Opening Shift Note Assumed care of patient, awake and alert. Respirations are even and unlabored on room air. No S/S of distress or SOB. Patient updated on POC and instructed to call for assistance as needed, patient verbalized understanding. Bed locked in lowest position, side rails up x 2, call light within reach. Will continue to monitor for changes Q1hr and PRN.
[2020-07-17] MEDS: traMADol HCL 50 MG TAB PO PRN (08:26)
[2020-07-17 09:00] VITALS: BP 117/60
[2020-07-17] MEDS: CHOLECALCIFEROL (VITD3) 1,000UNIT=25mCg TAB PO SCH (09:14)
[2020-07-17] MEDS: POTASSIUM CHL 10 Meq TABLET PO SCH (09:14)
[2020-07-17] MEDS: ATORVASTATIN 20 MG TAB PO SCH (09:14)
[2020-07-17] MEDS: DORZOLAM-TIMOLOL(2/0.5%) OPTH(EYE) SOLN 10ML OP SCH (09:15)
[2020-07-17] MEDS: CARVEDILOL 3.125 MG TAB PO SCH (09:15)
[2020-07-17] MEDS: levoFLOXacin 500MG 100 ML IV SCH (09:15)
[2020-07-17] MEDS: IRBESARTAN HYDROCHLOROTHIAZIDE PO SCH (09:15)
[2020-07-17] MEDS: NIFEdipine ER 30 MG TAB PO SCH (09:15)
[2020-07-17 12:42] VITALS: BP 117/64
[2020-07-17 13:45] VITALS: BP 117/64
--- NOTE | 2020-07-17 15:15 | NUR ---
DISCHARGE HOME Discharge instructions given as ordered. Encourage to follow up with PMD as instructed. All questions and concerns addressed. Patient verbalized understanding. Medication reconciliation form completed and copy given to patient. IV removed with catheter intact, pressure dressing applied. Telemetry unit returned to ICU. Patient taken to vehicle via wheelchair with all personal belongings, accompanied by staff. No distress noted at time of departure.
== END 2020-07-17 15:15 | disposition home or self-care (01) | DRG 194 ==
LOC: ER 14:54 → TELE 14:55 → TELE-EAST 21:55 → TELE-WESTW 07-14 06:23
PROVIDERS: ADMIT Internal Medicine; ATTEND Family Medicine
PROC: 0W993ZX Drainage of Right Pleural Cavity, Percutaneous Approach, Diagnostic (ICD-10-PCS; principal; 2020-07-16)
DX: J18.9 Pneumonia, unspecified organism (principal); J91.8 Pleural effusion in other conditions classified elsewhere; J98.11 Atelectasis; I10 Essential (primary) hypertension; E11.65 Type 2 diabetes mellitus with hyperglycemia; D63.8 Anemia in other chronic diseases classified elsewhere; E11.21 Type 2 diabetes mellitus with diabetic nephropathy; I73.9 Peripheral vascular disease, unspecified; E11.51 Type 2 diabetes mellitus with diabetic peripheral angiopathy without gangrene; E78.5 Hyperlipidemia, unspecified; M19.90 Unspecified osteoarthritis, unspecified site; E78.00 Pure hypercholesterolemia, unspecified; M51.34 Other intervertebral disc degeneration, thoracic region; E11.42 Type 2 diabetes mellitus with diabetic polyneuropathy; Z86.73 Personal history of transient ischemic attack (TIA), and cerebral infarction without residual deficits; Z87.891 Personal history of nicotine dependence; Z85.46 Personal history of malignant neoplasm of prostate; Z88.0 Allergy status to penicillin; Z79.82 Long term (current) use of aspirin; Z79.4 Long term (current) use of insulin; Z20.828 Contact with and (suspected) exposure to other viral communicable diseases
CPT/HCPCS: 10022; 36415; 71045; 71250; 76604; 76942; 80053; 81001; 82550; 82728; 82962; 83036; 83615; 83880; 83986; 84484; 85025; 85610; 85730; 86141; 87040; 87070; 87205; 87426; 89051; G0378; J1815; J1956; J3490

== ENCOUNTER 2020-07-26 19:40 | Inpatient (IN) | payer MEDICARE, OTHER ==
[~2020-07-26] VITALS: Ht 177.8 cm; Wt 71.5 kg
[2020-07-26 20:26] LABS: Urine Bacteria NONE SEEN /hpf (None Seen); Urine Blood Negative /uL (Negative); Urine Hyaline Cast FEW /lpf (0 - 2); Urine Mucus FEW (None Seen); Urine Specific Gravity 1.024 (1.001-1.035); Urine WBC <1 /hpf (0 - 3)
[2020-07-26 22:23] LABS: Basophils # (auto) 0.1 10 ^3/uL (0-0.2); Eosinophils # (auto) 0.2 10 ^3/uL (0-0.8); Monocytes # (auto) 1.2 10 ^3/uL (0-1.3)
[2020-07-26 22:26] LABS: Basophils % (auto) 0.8 % (0.0-2.0); Eosinophils % (auto) 2.3 % (0.0-7.0); Hematocrit 27.9 % (41.0-53.0); Lymphocytes # (auto) 0.8 10 ^3/uL (0.4-5.4); Lymphocytes % (auto) 7.4 % (10.0-50.0); Mean Corpuscular Hgb Conc. 32.4 g/dL (32.0-36.0); Mean Corpuscular Volume 77.1 fL (80.0-100.0); Monocytes % (auto) 11.2 % (0.0-12.0); Neutrophils # (auto) 8.2 10 ^3/uL (1.6-8.6); Neutrophils % (auto) 78.3 % (37.0-80.0); Platelet Count (auto) 315 10^3/uL (140-450); Red Blood Cells 3.62 10^6/uL (4.5-5.90); Red Cell Distribution Width 14.8 % (11.8-14.3); White Blood Cell 10.5 10^3/uL (4.4-10.8)
[2020-07-26 22:38] LABS: INR 0.99 (0.9-1.15); Partial Thromboplastin Time 29.6 sec (23.0-31.2)
[2020-07-26 22:41] LABS: Anion Gap 6 (5-15); Blood Urea Nitrogen 21 mg/dL (7-18); Calcium 8.7 mg/dL (8.5-10.1); Carbon Dioxide 24 mmol/L (21-32); Chloride 101 mmol/L (98-107); Glucose 143 mg/dL (74-106); Potassium 4.1 mmol/L (3.5-5.1); Sodium 131 mmol/L (136-145)
[2020-07-26 22:47] LABS: Alanine Aminotransferase 21 U/L (16-61); Alkaline Phosphatase 97 U/L (45-117); Aspartate Aminotransferase 15 U/L (15-37); BUN/Creatinine Ratio 17.4; Bilirubin, Total 0.2 mg/dL (0.2-1.0); GFR African American 73 mL/min; GFR Non-African American 61 mL/min; Total Protein 6.9 g/dL (6.4-8.2)
[2020-07-27] MEDS ORDERED: TELM80TA PO (01:30)
[2020-07-27] MEDS ORDERED: EZET-10 PO (01:30)
[2020-07-27] MEDS ORDERED: SPIR25TA8 PO ×2 (01:30→15:49)
[2020-07-27] MEDS ORDERED: CARV6.2551 PO ×2 (01:30→15:49)
[2020-07-27] MEDS ORDERED: NIFE90TA49 PO (01:30)
[2020-07-27] MEDS ORDERED: HYDR-4298 PO (01:30)
[2020-07-27] MEDS ORDERED: IPRATROPIUM BROM 0.5 MG/2.5ML INH SOL NEB PRN (07:15)
[2020-07-27] MEDS ORDERED: ALBUTEROL SULF 2.5 MG/0.5ML(0.5%) NEB SOLN NEB PRN (07:15)
[2020-07-27] MEDS ORDERED: ACETAMINOPHEN 325 MG TAB PO PRN (07:15)
[2020-07-27] MEDS ORDERED: DEXTROSE (50%) 50ML SYRG IV PRN (07:15)
[2020-07-27] MEDS ORDERED: DOCUSATE SOD 100 MG CAP PO PRN (07:15)
[2020-07-27] MEDS ORDERED: ONDANSETRON HCL 4 MG/2 ML VIAL IV PRN (07:15)
[2020-07-27] MEDS: InsuLIN REG 1unit/0.01ml Soln (100units/ml) SC SCH ×5 (08:00→23:59)
[2020-07-27] MEDS: ACCU-CHEK COMFORT CURVE STRIP VI SCH ×4 (08:13→19:55)
[2020-07-27 08:15] LABS: BUN/Creatinine Ratio 15.8; Calcium 8.5 mg/dL (8.5-10.1); Potassium 3.8 mmol/L (3.5-5.1)
[2020-07-27 09:17] LABS: Basophils # (auto) 0 10 ^3/uL (0-0.2); Basophils % (auto) 0.5 % (0.0-2.0); Eosinophils # (auto) 0.2 10 ^3/uL (0-0.8); Eosinophils % (auto) 2.4 % (0.0-7.0); Hematocrit 27.7 % (41.0-53.0); Hemoglobin 9.1 g/dL (13.5-17.5); Lymphocytes # (auto) 0.7 10 ^3/uL (0.4-5.4); Lymphocytes % (auto) 7.9 % (10.0-50.0); Mean Corpuscular Hemoglobin 25.1 pg (28.0-32.0); Mean Corpuscular Hgb Conc. 32.9 g/dL (32.0-36.0); Mean Corpuscular Volume 76.3 fL (80.0-100.0); Monocytes % (auto) 11.3 % (0.0-12.0); Neutrophils # (auto) 6.6 10 ^3/uL (1.6-8.6); Neutrophils % (auto) 77.9 % (37.0-80.0); Platelet Count (auto) 279 10^3/uL (140-450); Red Blood Cells 3.63 10^6/uL (4.5-5.90); Red Cell Distribution Width 14.6 % (11.8-14.3); White Blood Cell 8.5 10^3/uL (4.4-10.8)
--- NOTE | 2020-07-27 09:22 | NUR ---
Report Received report from ER. Holden
[2020-07-27] MEDS ORDERED: MIDAZOLAM HCL 1MG/1ML-2 ML VIAL IV ONE (09:45)
[2020-07-27] MEDS ORDERED: fentaNYL CITRATE 100 MCG/2 ML VL IV ONE (09:45)
[2020-07-27] MEDS: AZITHROMYCIN 500MG/ 250ML 250 ML IV SCH (10:00)
[2020-07-27] MEDS ORDERED: DexAMETHasone SOD PHOS 10MG/1ML VIAL INJ IV SCH (10:00)
[2020-07-27] MEDS: cefTRIAXone 1GM/50ML D5W 50 ML IV SCH (10:00)
--- NOTE | 2020-07-27 10:04 | NUR ---
Patient Arrived Patient arrived to unit, no signs of distress at this time. Respirations even and unlabored. Patient denies shortness of breath at this time but per patient, is present during exertion. Call light within reach, safety precautions in place, will continue to monitor. Addendum: 07/27/20 at 1104 by PEDRO BEYER RN RN Spoke with , Zabrina Quintanilla, all questions answered. Will continue to monitor.
[2020-07-27 10:21] VITALS: BP 177/40
[2020-07-27] MEDS ORDERED: LIDOCAINE 2%HCL (LOCAL ANESTH.) INJ 20ML MDV ONE (10:47)
--- NOTE | 2020-07-27 11:00 | NUR ---
Off Unit Patient taken to radiology for procedure.
[2020-07-27 13:00] VITALS: BP 142/72
--- NOTE | 2020-07-27 13:00 | NUR ---
at Station Dr. Gutierrez at station discussing patient's plan of care. New orders received, will carry out. Addendum: 07/27/20 at 1534 by PEDRO BEYER RN RN MD notified of patient's requesting to speak with her regarding update.
--- NOTE | 2020-07-27 13:47 | NUR ---
back tender insulation board Spoke with director regulatory agencyVioleta. Per Violeta, drainage fluid not sent to micro at this time as patient had drainage sent recently (from previous visit). Per Violeta, forms for pleurex equipment in chart for MD to sign for delivery of equipment on discharge.
[2020-07-27] MEDS ORDERED: IOHEXOL 300 MG/ML 100ML BOTTLE IJ ONE (13:50)
[2020-07-27] MEDS ORDERED: MORPHINE SULF INJ 2 MG/ML SYRINGE 1ML IV PRN (14:00)
[2020-07-27] MEDS ORDERED: GADOTERIDOL 279.3mg/mL 20ml Vial IV ONE (14:06)
[2020-07-27] MEDS: FUROSEMIDE 40 MG/4 ML VIAL IV SCH (14:12)
[2020-07-27] MEDS: HYDROcodone-ACET 5/325MG TAB PO PRN (14:13)
--- NOTE | 2020-07-27 14:15 | NUR ---
Patient Off Unit Patient off unit for CT/MRI.
--- NOTE | 2020-07-27 15:10 | NUR ---
Patient Returned Patient returned to unit. No signs of distress at this time. Respirations even and unlabored. Safety precautions in place, call light within reach. Will continue to monitor.
[2020-07-27] MEDS ORDERED: METF-370 PO (15:49)
[2020-07-27] MEDS ORDERED: DORZ1SOL OP (15:49)
--- NOTE | 2020-07-27 16:45 | NUR ---
MRSA Swab sent crown and bridge technician aware.
[2020-07-27 17:00] VITALS: BP 125/71
[2020-07-27] MEDS: MORPHINE SULF INJ 2 MG/ML SYRINGE 1ML IV PRN (18:14)
--- NOTE | 2020-07-27 18:49 | NUR ---
Respiratory note: AT BEDSIDE FOR PRN MED NEB TX ASSESSMENT, PT PRESENTING NO RESPIRATORY DISTRESS AT THIS TIME. PT SITTING UP IN BED TALKING ON THE PHONE, NO RESPIRATORY DISTRESS NOTED. HR 81, SPO2 95% ON ROOM AIR, RR 17, BS DIMINISHED. MED NEB TX NOT INDICATED AT THIS TIME. PT MADE AWARE TO HAVE RT PAGE IF NEEDED, WILL CONTINUE TO MONITOR.
[2020-07-27 22:00] VITALS: BP 143/63
[2020-07-28] MEDS: InsuLIN REG 1unit/0.01ml Soln (100units/ml) SC SCH ×6 (04:00→23:30)
[2020-07-28] MEDS: ACCU-CHEK COMFORT CURVE STRIP VI SCH ×7 (04:28→23:30)
[2020-07-28 04:58] VITALS: BP 131/72
--- NOTE | 2020-07-28 07:30 | NUR ---
Opening Shift Note Assumed patient care from NOC RN, Malick. Patient is currently sitting up in bed, feet dangling. No signs of distress at this time, denying shortness of breath. RR 16, SpO2 96%. Patient is AOx4 and cooperative. Patient states he has 7/10 pain at Pleurex incision site. Site dressing is clean, dry and intact. Warm to touch and dry. Patient assisted with repositioning and offered pain medication, see EMAR, discussed side effects with patient and encouraged to call when ambulating. Patient verbalized understanding. Safety precautions in place, call light within reach. Will continue to monitor.
[2020-07-28] MEDS: MORPHINE SULF INJ 2 MG/ML SYRINGE 1ML IV PRN ×2 (07:38→14:23)
[2020-07-28] MEDS: cefTRIAXone 1GM/50ML D5W 50 ML IV SCH (07:38)
[2020-07-28 08:00] VITALS: BP 134/79
--- NOTE | 2020-07-28 08:27 | NUR ---
Breakfast Patient made RN aware that he has had issues with decreased appetite. Dietary consult has been ordered, per protocol. Patient has eaten 100% of breakfast at this time, states "This is the most I've eaten for breakfast in a while." Patient encouraged to continue to maintain increased oral intake and benefits of maintaining adequate nutrition, patient verbalized understanding and is agreeable at this time.
[2020-07-28] MEDS: AZITHROMYCIN 500MG/ 250ML 250 ML IV SCH (08:56)
[2020-07-28] MEDS: FUROSEMIDE 40 MG/4 ML VIAL IV SCH (08:56)
--- NOTE | 2020-07-28 10:27 | NUR ---
Respiratory note: PT ASSESSED FOR PRN TX. HR 92, RR 18, POX 98% ON RA, BS ARE CLEAR. NO SOB OR DISTRESS NOTED. PT NOTIFY TO CALL RT FOR TX.
--- NOTE | 2020-07-28 11:20 | NUR ---
at Bedside Dr. Mooney at bedside discussing plan of care with patient. New orders received.
[2020-07-28 12:00] VITALS: BP 120/70
--- NOTE | 2020-07-28 12:25 | NUR ---
at Station Dr. Mae at station discussing patient's plan of care. Per Dr. Mae, do not drain Pleurex today as patient was drained yesterday; new orders received for patient to have Pleurex drained tomorrow 07/29 with orders for cytology tomorrow. Per Dr. Mae: copy of pathology report was given to Dr. Gutierrez (by Dr. Mae). Will notify Dr. Mooney.
--- NOTE | 2020-07-28 12:33 | NUR ---
Called Left message with Dr. Mooney's answering service regarding Dr. Mae orders for fluid drainage and cytology to be obtained tomorrow.
--- NOTE | 2020-07-28 13:00 | NUR ---
Nutrition Assessment Notes Please refer to link for full assessment notes. Est Energy needs: 2263-1029 kcals (20-23 kcal/kgBW) Est Protein needs: 73-80 gms/day (1.0-1.1 gm/kgBW) Will continue to monitor and reassess prn. Addendum: 07/28/20 at [address] Amended: Links added.
--- NOTE | 2020-07-28 13:09 | NUR ---
Called Spoke with Dr. Mooney regarding update/new orders from Dr. Mae, Dr. Mooney is now aware, no new orders at this time.
--- NOTE | 2020-07-28 14:38 | NUR ---
MD Called Spoke with Dr. Mae regarding troponin lab draw. Per MD, cancel order at this time. Will notify labor economics professor.
[2020-07-28 16:00] VITALS: BP 120/64
[2020-07-28] MEDS: HYDROcodone-ACET 5/325MG TAB PO PRN (16:28)
--- NOTE | 2020-07-28 19:20 | NUR ---
Opening Shift Note Received report and assumed care of patient. Patient is awake and alert. No signs or symptoms of distress noted. Patient has some mild pain, but tolerating well. No pain medication has been requested at this time. HOB at 30 degrees, bed locked in lowest position, and call light within reach. Instructed patient on plan of care and to call for assistance as needed. Will continue to monitor.
--- NOTE | 2020-07-28 19:44 | NUR ---
Respiratory note: ASSESSMENT FOR PRN MED NEB TX. PT PRESENTING NO RESPIRATORY DISTRESS AT THIS TIME. HR 87, SPO2 96% ON ROOM AIR, RR 17 BS DIMINISHED. MED NEB TX NOT INDICATED AT THIS TIME. PT AWARE TO HAVE RT PAGED IF NEEDED, WILL CONTINUE TO MONITOR.
[2020-07-28 21:00] VITALS: BP 106/61
[2020-07-29] MEDS: InsuLIN REG 1unit/0.01ml Soln (100units/ml) SC SCH ×5 (03:57→21:45)
[2020-07-29] MEDS: ACCU-CHEK COMFORT CURVE STRIP VI SCH ×5 (03:57→21:45)
[2020-07-29 05:00] VITALS: BP 101/47
--- NOTE | 2020-07-29 07:00 | NUR ---
Report Given to Geri ROACH.
--- NOTE | 2020-07-29 07:30 | NUR ---
Opening Shift Note [facility]. Patient currently out of bed, sitting up in chair. Safety precautions in place, will continue to monitor.
[2020-07-29 08:36] VITALS: BP 112/73
--- NOTE | 2020-07-29 09:00 | NUR ---
at Bedside Dr. Mae at bedside discussing plan of care with patient. New orders received for chest x ray tomorrow, no orders for drainage of pleurex today, per MD drain tomorrow 07/30. Per Dr. Mae, Dr. Gutierrez was given pathology report from previous visit (by Dr. Mae). Per Dr. Mae obtain copy of pathology report for Dr. Mooney on Thursday07/30/2020.
[2020-07-29] MEDS: cefTRIAXone 1GM/50ML D5W 50 ML IV SCH (09:54)
[2020-07-29] MEDS: FUROSEMIDE 40 MG/4 ML VIAL IV SCH (09:55)
[2020-07-29] MEDS: MORPHINE SULF INJ 2 MG/ML SYRINGE 1ML IV PRN ×3 (10:25→21:39)
[2020-07-29] MEDS: AZITHROMYCIN 500MG/ 250ML 250 ML IV SCH (10:30)
[2020-07-29] MEDS: DORZOLAMIDE HCL 2% OPTH(EYE) SOL 10ML EACHEYE SCH ×2 (12:26→21:37)
[2020-07-29 12:33] VITALS: BP 111/72
--- NOTE | 2020-07-29 13:45 | NUR ---
PT ASSESSED FOR PRN MED NEB, PT ON RA WITH SPO2 93%, HR 86, RR 15 WITH CLEAR BS. NO DISTRESS NOTED. WILL CONTINUE TO MONITOR PT.
--- NOTE | 2020-07-29 14:00 | NUR ---
New IV New IV: 22 gauge to left wrist started by Torito Cardenas RN. IV to left AC discontinued. Catheter intact, pressure dressing applied.
[2020-07-29 16:47] VITALS: BP 126/66
[2020-07-29] MEDS: HYDROcodone-ACET 5/325MG TAB PO PRN (18:37)
--- NOTE | 2020-07-29 19:13 | NUR ---
Respiratory note: ASSESSED PT FOR PRN TX PT WAS AWAKE AND ALERT, NO RESP DISTRESS NOTED. HR 77, RR 16, SPO2 98% ON ROOM AIR.
--- NOTE | 2020-07-29 19:25 | NUR ---
Opening Shift Note Received report and assumed care of patient. Patient is awake and alert. No signs or symptoms of distress noted. Patient has some pain when he lifts his arm up. Patient is till sore and has pain with movement. Patient aware he is not due for pain medication. Per patient, pain is at a tolerable level without movement of right arm. HOB at 30 degrees, bed locked in lowest position, and call light within reach. Instructed patient on plan of care and to call for assistance as needed. Will continue to monitor.
[2020-07-29 20:00] VITALS: BP 126/66
[2020-07-29 22:00] VITALS: BP 129/72
[2020-07-30] VITALS (8 sets, daily range): BP systolic 87–135; BP diastolic 49–67
[2020-07-30] MEDS: InsuLIN REG 1unit/0.01ml Soln (100units/ml) SC SCH ×4 (06:34→21:55)
[2020-07-30] MEDS: ACCU-CHEK COMFORT CURVE STRIP VI SCH ×4 (06:34→21:54)
--- NOTE | 2020-07-30 08:00 | NUR ---
Patient sitting in chair at bedside; eating breakfast. Denies any pain at this time. Patient stable.
[2020-07-30] MEDS: DORZOLAMIDE HCL 2% OPTH(EYE) SOL 10ML EACHEYE SCH ×2 (09:59→21:54)
[2020-07-30] MEDS: cefTRIAXone 1GM/50ML D5W 50 ML IV SCH (09:59)
[2020-07-30] MEDS: FUROSEMIDE 40 MG/4 ML VIAL IV SCH (09:59)
--- NOTE | 2020-07-30 10:00 | NUR ---
Patient resting comfortably in bed with no complaint of pain. Scheduled medications given per order. Patient stable.
[2020-07-30] MEDS: AZITHROMYCIN 500MG/ 250ML 250 ML IV SCH (11:07)
--- NOTE | 2020-07-30 11:08 | NUR ---
Patient sitting in chair at bedside. Denies any pain. Scheduled IV abx given per order. Patient stable.
--- NOTE | 2020-07-30 11:25 | NUR ---
Patient sitting on side of bed with Dr. Gutierrez at bedside. Patient stable.
--- NOTE | 2020-07-30 12:40 | NUR ---
Patient sitting in chair at bedside. Checked blood sugar: 156 mg/dl - will cover per sliding scale.
--- NOTE | 2020-07-30 14:25 | NUR ---
Patient resting comfortably in bed with Dr. Mathias at bedside. Addendum: 07/30/20 at 1601 by MELANI CANTU RN RN Late entry: Doctor at bedside at 1425. Also emptied 300mls of urine from urinal.
--- NOTE | 2020-07-30 15:55 | NUR ---
Patient ambulating in his room. No distress noted. Patient stable.
--- NOTE | 2020-07-30 16:45 | NUR ---
Patient resting in bed with , Zabrina at bedside. Pleurx located in RUQ was drained using sterile technique; 400mls of sanguinous fluid drained. Patient tolerated well. Drainage sent for cytology.
--- NOTE | 2020-07-30 18:10 | NUR ---
Patient resting comfortably in bed with no complaint of pain. Checked blood sugar: 133 mg/dl - will cover per sliding scale.
--- NOTE | 2020-07-30 18:30 | NUR ---
Patient sitting in chair at bedside; eating dinner. Covered per sliding scale. Patient stable throughout shift.
--- NOTE | 2020-07-30 19:30 | NUR ---
Opening Shift Note Received report and assumed care of patient. Patient is awake and alert. No signs or symptoms of distress noted. No pain noted at this time. HOB at 30 degrees, bed locked in lowest position, and call light within reach. Instructed patient on plan of care and to call for assistance as needed. Will continue to monitor.
--- NOTE | 2020-07-30 20:30 | NUR ---
Patient Plural drainage was not sent to lab when noted. On begging of shift, found patient drainage at nursing station. Pleural drainage verified and walked to lab by this nurse.
[2020-07-31] VITALS (7 sets, daily range): BP systolic 125–145; BP diastolic 59–76
--- NOTE | 2020-07-31 02:48 | NUR ---
Patient Requests GI Clarification for Colonoscopy Patient asked to speak with attending doctor to re-consider colonoscopy be done. Patient is open to outpatient colonoscopy if necessary. Social Service consult was also put in for further D/C evaluation.
[2020-07-31] MEDS: InsuLIN REG 1unit/0.01ml Soln (100units/ml) SC SCH ×4 (06:38→22:00)
[2020-07-31] MEDS: ACCU-CHEK COMFORT CURVE STRIP VI SCH ×4 (06:38→23:01)
--- NOTE | 2020-07-31 08:20 | NUR ---
Patient sitting in chair at bedside; eating breakfast. Denies any pain at this time. Patient stable.
[2020-07-31] MEDS: MORPHINE SULF INJ 2 MG/ML SYRINGE 1ML IV PRN ×2 (08:52→23:03)
--- NOTE | 2020-07-31 08:52 | NUR ---
Patient medicated for 10/10 pain at pleur-x site. Patient stable at this time.
[2020-07-31] MEDS: cefTRIAXone 1GM/50ML D5W 50 ML IV SCH (09:22)
[2020-07-31] MEDS: FUROSEMIDE 40 MG/4 ML VIAL IV SCH (09:23)
[2020-07-31] MEDS: DORZOLAMIDE HCL 2% OPTH(EYE) SOL 10ML EACHEYE SCH ×2 (09:23→22:39)
--- NOTE | 2020-07-31 09:25 | NUR ---
Scheduled medication given per order. Patient states pain is subsiding. Patient stable at this time.
[2020-07-31] MEDS: AZITHROMYCIN 500MG/ 250ML 250 ML IV SCH (10:34)
--- NOTE | 2020-07-31 10:34 | NUR ---
Scheduled IV abx given per order. Patient sitting on side of bed with no distress noted. Patient stable. 6+
--- NOTE | 2020-07-31 11:06 | NUR ---
Nutrition Followup Note Wt 69.8kg Pt was sleeping at time of rounds with no family at bedside. Pt has a CCHO 60g diet with a good appetite aeb pt with an avg po intake of 97% x 2 days per RN note. Est Energy needs: 7548-6554 kcals (20-23 kcal/kgBW) Est Protein needs: 73-80 gms/day (1.0-1.1 gm/kgBW) Will continue to monitor and reassess prn. Labs: Alb 3.0L BM: Pt with 1 BM 07/31 per Rn note Skin: BS 19 low risk, full details in healthcare management consultant note Will continue to monitor PO status, skin status, pertinent labs and weight trends. Will f/u in 3-5 days. 1) Continue to carefully monitor pt PO intake to meet at least 75% of meals 2) Continue current plan of care Expected Outcomes/Goals: Pt appetite to remain >75% PO intake
[2020-07-31] MEDS ORDERED: GOLYTELY 4L KIT PO ONE (11:30)
--- NOTE | 2020-07-31 12:23 | NUR ---
Checked blood sugar: 173 mg/dl - will cover per sliding scale. Addendum: 07/31/20 at 1228 by MELANI CANTU RN RN Covered per sliding scale.
--- NOTE | 2020-07-31 14:38 | NUR ---
assessment Patient is a 85 year old male who is alert and oriented. Patients cognitive abilities are intact. Prior to admission patient lived home with family and functioned independently. Patient informed me he is able to care for his own ADLs. Per patient he will return home to his prior living arrangements post discharge and family will transport him home. Patients PCP is Dr Griffiths. Patient feels safe at home. Patient has good family support. Patient has a consult for follow up colonoscopy as outpatient. Per RN [place] patient is having colonoscopy here in the AM. I informed patient he has a right to speak to a social services specialist regarding all care. I informed patient he has a right to participate in any and all discharge planning. Patient has a POA and advanced directive. Patient verbalized understanding and agreed to discharge plan. Addendum: 07/31/20 at 1442 by Arleen BOOGIE Amended: Links added.
--- NOTE | 2020-07-31 16:50 | NUR ---
Patient resting quietly in bed with no distress noted. Patient stable.
--- NOTE | 2020-07-31 18:00 | NUR ---
Checked blood sugar: 127 mg/dl - no coverage required. Patient resting comfortably in bed with no distress noted. Patient stable.
--- NOTE | 2020-07-31 19:35 | NUR ---
Opening note Assumed care of patient, alert and oriented x4. No S/S of SOB, distress or pain. Pleurx drain noted in the right upper quadrant. Dressing clean, dry and intact. Pt instructed to continue drinking Golytely and of NPO status after midnight for procedure tomorrow. Pt verbalized understanding. Safety measures in place, bed in lowest locked position, bed rails raised x2, call light within reach. Instructed on POC and instructed to call for assistance. Will continue to monitor PRN and q1h.
--- NOTE | 2020-07-31 21:30 | NUR ---
Pleural fluid drained from pleurx. Sterile technique used. 300ml removed and sent to lab for cytology.
[2020-08-01 05:29] VITALS: BP 124/59
[2020-08-01 05:35] LABS: Basophils # (auto) 0 10 ^3/uL (0-0.2); Eosinophils # (auto) 0.3 10 ^3/uL (0-0.8); Hemoglobin 8.6 g/dL (13.5-17.5); Mean Corpuscular Volume 76.3 fL (80.0-100.0); Monocytes # (auto) 1.4 10 ^3/uL (0-1.3)
[2020-08-01 05:38] LABS: Basophils % (auto) 0.5 % (0.0-2.0); Lymphocytes % (auto) 13.1 % (10.0-50.0); Mean Corpuscular Hemoglobin 25.2 pg (28.0-32.0); Mean Corpuscular Hgb Conc. 33.1 g/dL (32.0-36.0); Monocytes % (auto) 17.4 % (0.0-12.0); Neutrophils # (auto) 5.1 10 ^3/uL (1.6-8.6); Nucleated Red Blood Cells % 0.1 %; Platelet Count (auto) 290 10^3/uL (140-450); Red Blood Cells 3.41 10^6/uL (4.5-5.90); Red Cell Distribution Width 14.7 % (11.8-14.3); White Blood Cell 7.9 10^3/uL (4.4-10.8)
[2020-08-01 05:51] LABS: INR 1.04 (0.9-1.15)
[2020-08-01 05:53] LABS: Calcium 7.9 mg/dL (8.5-10.1); Potassium 3.1 mmol/L (3.5-5.1)
[2020-08-01] MEDS ORDERED: GOLYTELY 4L KIT PO ONE (06:00)
[2020-08-01] MEDS: ACCU-CHEK COMFORT CURVE STRIP VI SCH ×4 (06:46→22:49)
[2020-08-01] MEDS: InsuLIN REG 1unit/0.01ml Soln (100units/ml) SC SCH ×5 (06:46→22:48)
[2020-08-01] MEDS ORDERED: SODIUM CHLORIDE LOCK 10 ML ONE (07:24)
[2020-08-01] MEDS ORDERED: diphenhdrAMINE HCL 50 MG/1 ML VL ONE (07:25)
[2020-08-01 08:54] VITALS: BP 162/70
--- NOTE | 2020-08-01 09:00 | NUR ---
Opening Shift Note Assumed care of patient, awake and alert. No S/S of distress/SOB or pain. Instructed on POC and to call for assistance PRN bed is locked and in lowest position side rails up x2 , will continue to monitor for changes Q1hr and PRN.
[2020-08-01] MEDS: DORZOLAMIDE HCL 2% OPTH(EYE) SOL 10ML EACHEYE SCH ×2 (10:00→22:00)
[2020-08-01] MEDS: fentaNYL CITRATE 100 MCG/2 ML VL ONE ×3 (10:03→10:11)
[2020-08-01] MEDS: MIDAZOLAM HCL 5 MG/ML-1ML VIAL ONE ×3 (10:03→10:11)
[2020-08-01] MEDS: FUROSEMIDE 40 MG/4 ML VIAL IV SCH (11:26)
[2020-08-01] MEDS: cefTRIAXone 1GM/50ML D5W 50 ML IV SCH (11:27)
--- NOTE | 2020-08-01 11:29 | NUR ---
RETURNED FOR COLONOSCOPY PATIENT RETURNED FROM COLONOSCOPY NO S&S OF DISTRESS OR PAIN , BED IS AT LOWEST HEIGHT SIDE RAILS UP X2 , WILL CONTINUE TO MONITOR Q1H AND PRN.
[2020-08-01 13:00] VITALS: BP 145/55
[2020-08-01] MEDS: AZITHROMYCIN 500MG/ 250ML 250 ML IV SCH (13:22)
[2020-08-01 17:00] VITALS: BP 129/54
[2020-08-01 21:48] VITALS: BP 127/64
--- NOTE | 2020-08-01 22:00 | NUR ---
Pleural fluid drained from pleurx. Sterile technique used. 260ml removed
[2020-08-02 05:31] VITALS: BP 115/54
[2020-08-02] MEDS: InsuLIN REG 1unit/0.01ml Soln (100units/ml) SC SCH ×2 (06:21→11:30)
[2020-08-02] MEDS: ACCU-CHEK COMFORT CURVE STRIP VI SCH ×2 (06:22→11:30)
--- NOTE | 2020-08-02 07:10 | NUR ---
closing shift notes pt has no s/s of distress or sob at this time endorse care to day shift RN
[2020-08-02 08:54] VITALS: BP 135/73
[2020-08-02] MEDS: cefTRIAXone 1GM/50ML D5W 50 ML IV SCH (09:17)
[2020-08-02] MEDS: FUROSEMIDE 40 MG/4 ML VIAL IV SCH (09:17)
[2020-08-02] MEDS: DORZOLAMIDE HCL 2% OPTH(EYE) SOL 10ML EACHEYE SCH (10:06)
[2020-08-02] MEDS: AZITHROMYCIN 500MG/ 250ML 250 ML IV SCH (10:06)
[2020-08-02 13:00] VITALS: BP 140/68
[2020-08-02 15:09] VITALS: BP 140/68
--- NOTE | 2020-08-02 16:11 | NUR ---
DISCHARGE INSTRUCTIONS GIVEN TO PT. VERBALIZED UNDERSTANDING. ALL APPROPRIATE PAPERWORK SIGNED. IV AND TELE BOX REMOVED. PT HOME MEDS RETRIEVED FROM PHARMACY AND GIVEN TO PT. PT DISCHARGED HOME WITH FAMILY.
--- NOTE | 2020-08-07 14:31 | NUR ---
Called Sanjay spoke with Alvin who confirmed the order for Pleurx bottles and supplies will release this evening and ship out tomorrow, Member should receive in 1-2 days. Called patients home spoke with Zabrina advised I spoke with Sanjay and items will be received in 1-2 days, she confirmed she spoke with Sanjay and was advised items will be shipped out as well.
--- NOTE | 2020-08-07 15:51 | NUR ---
re-assessment I spoke to Dr Gutierrez this morning and notified her that patient was sent home with no supply order or home health. I requested home health an pleurx bottle supply order. Dr Gutierrez agreed. Per consult pleurx bottles. Lawanda business case analyst is working on order from [facility] and supplies will be delivered to patient within 2 days. Per ss consult home health for pleurx care. Per Zabrina patients she has no preference on who provides service. order has been sent to [facility]. Per Gayle at [facility] service will start on 08/08/2020. Zabrina has been notified. Addendum: 08/07/20 at 1555 by Arleen BOOGIE Amended: Links added.
--- NOTE | 2020-08-08 15:02 | NUR ---
Confirmed with Alvin at [facility] items have been shipped to member today he will receive in 1-2 days.
== END 2020-08-02 16:07 | disposition home or self-care (01) | DRG 187 ==
LOC: ER 19:40 → TELE 19:41 → TELE-CENTR 07-27 10:04
PROVIDERS: ADMIT Hospitalist; ATTEND Internal Medicine Pulmonary Disease
PROC: 0DBN8ZZ Excision of Sigmoid Colon, Via Natural or Artificial Opening Endoscopic (ICD-10-PCS; 2020-08-01)
PROC: 0DBH8ZX Excision of Cecum, Via Natural or Artificial Opening Endoscopic, Diagnostic (ICD-10-PCS; principal; 2020-08-01 10:01)
DX: J90 Pleural effusion, not elsewhere classified (principal); J98.11 Atelectasis; C18.0 Malignant neoplasm of cecum; E11.65 Type 2 diabetes mellitus with hyperglycemia; D64.9 Anemia, unspecified; E78.00 Pure hypercholesterolemia, unspecified; E78.5 Hyperlipidemia, unspecified; I10 Essential (primary) hypertension; K64.8 Other hemorrhoids; K63.5 Polyp of colon; K76.89 Other specified diseases of liver; Z86.73 Personal history of transient ischemic attack (TIA), and cerebral infarction without residual deficits; Z87.01 Personal history of pneumonia (recurrent)
CPT/HCPCS: 36415; 45380; 70553; 71045; 71046; 71250; 74177; 76604; 76942; 77002; 78306; 80048; 80053; 81001; 82378; 82962; 83036; 83880; 84484; 85025; 85610; 85730; 87081; 93005; G0378; J0696; J1815; J2250

== ENCOUNTER → 2020-09-10 | Outpatient (CLI) | payer MEDICARE, OTHER ==
[~2020-09-10] MED LIST changes: +ALBUTEROL SULF 2.5 MG/0.5ML(0.5%) NEB SOLN ONE; +CARV6.2551 PO; +DORZ1SOL OP; +EZET-10 PO; +HYDR-4298 PO; +LIDOCAINE 2%HCL (LOCAL ANESTH.) INJ 20ML MDV ONE; +SPIR25TA8 PO; +TELM80TA PO
== END | disposition home or self-care (01) ==
LOC: RT 08:29
PROVIDERS: ATTEND Internal Medicine Pulmonary Disease
DX: C34.90 Malignant neoplasm of unspecified part of unspecified bronchus or lung (principal); R06.02 Shortness of breath
CPT/HCPCS: 94060; 94727; 94729

== ENCOUNTER → 2020-09-17 | Outpatient (CLI) | payer MEDICARE, OTHER ==
[~2020-09-17] MED LIST changes: -ALBUTEROL SULF 2.5 MG/0.5ML(0.5%) NEB SOLN ONE; -LIDOCAINE 2%HCL (LOCAL ANESTH.) INJ 20ML MDV ONE
[2020-09-17 14:56] LABS: INR 1.01 (0.9-1.15); Partial Thromboplastin Time 25.6 sec (23.0-31.2)
== END | disposition home or self-care (01) ==
LOC: LAB 14:30
PROVIDERS: ATTEND Internal Medicine Pulmonary Disease
DX: J90 Pleural effusion, not elsewhere classified (principal); R06.00 Dyspnea, unspecified; E11.21 Type 2 diabetes mellitus with diabetic nephropathy
CPT/HCPCS: 36415; 85610; 85730

== ENCOUNTER → 2020-09-19 | Outpatient (CLI) | payer MEDICARE, OTHER ==
[~2020-09-19] VITALS: Ht 30.5 cm; Wt 0.5 kg
[~2020-09-19] MED LIST changes: +MIDAZOLAM HCL 1MG/1ML-2 ML VIAL IV ONE; +MIDAZOLAM HCL 1MG/1ML-2 ML VIAL ONE; +fentaNYL CITRATE 100 MCG/2 ML VL IV ONE; +fentaNYL CITRATE 100 MCG/2 ML VL ONE
--- NOTE | 2020-09-19 09:45 | NUR ---
PLEURX CATHETER CONSENT SIGNED FOR DR HERNÁNDEZ TO REMOVE PLEURX CATHETER - DEPUTY SHERIFF K9 HANDLER EXPLAINED POSSIBILITY OF INFECTION/BLEEDING WITH PROCEDURE.PATIENT HAD PLEURX CATHETER REMOVED PER DR HERNÁNDEZ UNDER LOCAL ANESTHETIC - PATIENT ESTELA WELL. STERILE GAUZE APPLIED TO SITE AND COVERED WITH TEGADERM. MINIMAL BLEEDING NOTED AT SITE. PATIENT INSTRUCTED TO KEEP AREA DRY X 3 DAYS AND THEN REMOVE DRESSING - PATIENT VERBALIZED UNDERSTANDING. PATIETN DEPARTED PER AMBULATORY WITH [facility]E FOR TO PICK HIM UP. GAIT APPEARS STEADY.
== END | disposition home or self-care (01) ==
LOC: XY 08:57
DX: Z48.03 Encounter for change or removal of drains (principal); Z88.0 Allergy status to penicillin; Z85.46 Personal history of malignant neoplasm of prostate; Z79.899 Other long term (current) drug therapy; Z98.890 Other specified postprocedural states
CPT/HCPCS: 71045; J2250; J3010; 32552; 76000

== ENCOUNTER → 2020-10-30 | Outpatient (CLI) | payer MEDICARE, OTHER ==
[~2020-10-30] MED LIST changes: -MIDAZOLAM HCL 1MG/1ML-2 ML VIAL IV ONE; -MIDAZOLAM HCL 1MG/1ML-2 ML VIAL ONE; -fentaNYL CITRATE 100 MCG/2 ML VL IV ONE; -fentaNYL CITRATE 100 MCG/2 ML VL ONE
== END | disposition home or self-care (01) ==
LOC: LAB 16:16
PROVIDERS: ATTEND Internal Medicine
DX: N39.0 Urinary tract infection, site not specified (principal)
CPT/HCPCS: 87086

== ENCOUNTER → 2020-11-06 | Outpatient (CLI) | payer MEDICARE, OTHER ==
[2020-11-06 13:48] LABS: Basophils # (auto) 0 10 ^3/uL (0-0.2); Hemoglobin 8.9 g/dL (13.5-17.5); Monocytes # (auto) 1.1 10 ^3/uL (0-1.3)
[2020-11-06 13:50] LABS: Basophils % (auto) 0.6 % (0.0-2.0); Eosinophils # (auto) 0.1 10 ^3/uL (0-0.8); Hematocrit 27.9 % (41.0-53.0); Lymphocytes # (auto) 0.8 10 ^3/uL (0.4-5.4); Lymphocytes % (auto) 13.7 % (10.0-50.0); Mean Corpuscular Hemoglobin 24.8 pg (28.0-32.0); Mean Corpuscular Hgb Conc. 31.8 g/dL (32.0-36.0); Neutrophils # (auto) 3.8 10 ^3/uL (1.6-8.6); Neutrophils % (auto) 66.1 % (37.0-80.0); Platelet Count (auto) 136 10^3/uL (140-450); Red Blood Cells 3.58 10^6/uL (4.5-5.90); White Blood Cell 5.8 10^3/uL (4.4-10.8)
[2020-11-06 13:53] LABS: Monocytes % (auto) 18.6 % (0.0-12.0); Red Cell Distribution Width 23.3 % (11.8-14.3)
[2020-11-06 14:12] LABS: Albumin 3.4 g/dL (3.4-5.0); Calcium 8.9 mg/dL (8.5-10.1); Potassium 3.7 mmol/L (3.5-5.1)
[2020-11-06 14:15] LABS: BUN/Creatinine Ratio 15.7; Bilirubin, Total 0.2 mg/dL (0.2-1.0); Total Protein 7.7 g/dL (6.4-8.2)
== END | disposition home or self-care (01) ==
LOC: LAB 13:32
PROVIDERS: ATTEND Internal Medicine
DX: C18.0 Malignant neoplasm of cecum (principal); C79.51 Secondary malignant neoplasm of bone; C78.01 Secondary malignant neoplasm of right lung; C78.02 Secondary malignant neoplasm of left lung; R64 Cachexia; E11.9 Type 2 diabetes mellitus without complications
CPT/HCPCS: 36415; 80053; 82378; 83036; 83615; 85025

== ENCOUNTER 2020-12-26 10:16 | Inpatient (IN) | payer MEDICARE, OTHER ==
[~2020-12-26] VITALS: Ht 167.6 cm; Wt 54.2 kg
[2020-12-26 11:31] LABS: Basophils # (auto) 0 10 ^3/uL (0-0.2); Eosinophils # (auto) 0 10 ^3/uL (0-0.8); Lymphocytes # (auto) 0.7 10 ^3/uL (0.4-5.4); Mean Corpuscular Volume 78.3 fL (80.0-100.0); Monocytes # (auto) 0.9 10 ^3/uL (0-1.3); White Blood Cell 7.8 10^3/uL (4.4-10.8)
[2020-12-26 11:34] LABS: Basophils % (auto) 0.6 % (0.0-2.0); Hematocrit 35.7 % (41.0-53.0); Hemoglobin 11.7 g/dL (13.5-17.5); Lymphocytes % (auto) 9.4 % (10.0-50.0); Mean Corpuscular Hemoglobin 25.6 pg (28.0-32.0); Mean Corpuscular Hgb Conc. 32.7 g/dL (32.0-36.0); Monocytes % (auto) 11.3 % (0.0-12.0); Neutrophils # (auto) 6.1 10 ^3/uL (1.6-8.6); Neutrophils % (auto) 78.7 % (37.0-80.0); Red Blood Cells 4.57 10^6/uL (4.5-5.90)
[2020-12-26 11:41] LABS: Anion Gap 11 (5-15); Blood Urea Nitrogen 29 mg/dL (7-18); Calcium 9.8 mg/dL (8.5-10.1); Carbon Dioxide 18 mmol/L (21-32); Chloride 112 mmol/L (98-107); Glucose 123 mg/dL (74-106); Sodium 141 mmol/L (136-145)
[2020-12-26 11:42] LABS: Red Cell Distribution Width 20.9 % (11.8-14.3)
[2020-12-26 11:47] LABS: Alanine Aminotransferase 25 U/L (16-61); Alkaline Phosphatase 94 U/L (45-117); Aspartate Aminotransferase 44 U/L (15-37); Bilirubin, Total 0.7 mg/dL (0.2-1.0); GFR African American 73 mL/min; GFR Non-African American 61 mL/min; Total Protein 9.3 g/dL (6.4-8.2)
[2020-12-26 12:03] LABS: Lactic Acid w/Reflex 2.1 mmol/L (0.4-2.0)
[2020-12-26] MEDS ORDERED: DexAMETHasone SOD PHOS 10MG/1ML VIAL INJ IV ONE (13:15)
[2020-12-26] MEDS ORDERED: AZITHROMYCIN 500MG/ 250ML 250 ML IV ONE (13:15)
[2020-12-26] MEDS ORDERED: SODIUM CHLORIDE 0.9% 1,000 ML IV ONE (14:00)
[2020-12-26 17:37] LABS: Magnesium 2.9 mg/dL (1.6-2.6)
[2020-12-26 17:46] LABS: INR 1.15 (0.9-1.15); Partial Thromboplastin Time 28.1 sec (23.0-31.2)
[2020-12-26] MEDS ORDERED: HYDROcodone-ACET 5/325MG TAB PO PRN (18:00)
[2020-12-26] MEDS ORDERED: ONDANSETRON HCL 4 MG/2 ML VIAL IV PRN (18:00)
[2020-12-26] MEDS ORDERED: REMDESIVIR PER PHARMACY 0 ML IV SCH (18:00)
[2020-12-26] MEDS ORDERED: MORPHINE SULFATE INJECTION 2 MG/ML SYRG IV PRN ×2 (18:00)
[2020-12-26] MEDS ORDERED: DEXTROSE (50%) 50ML SYRG IV PRN (18:00)
[2020-12-26] MEDS ORDERED: NITROGLYCERIN 0.4 MG SL TAB SL PRN (18:00)
[2020-12-26] MEDS: cefTRIAXone 1GM/50ML D5W 50 ML IV SCH (18:35)
[2020-12-26 18:55] LABS: Lactate Dehydrogenase 745 U/L (87-241)
[2020-12-26 19:08] LABS: CRP High Sensitivity > 19.0 mg/dL (< 0.3)
[2020-12-26] MEDS: BUDESONIDE (INHALATION) 180 MCG IH IN SCH (19:15)
[2020-12-26] MEDS: ALBUTEROL SULF HFA 90MCG INH 200DOSE IN PRN (19:15)
[2020-12-26 20:50] VITALS: BP 126/71
[2020-12-26] MEDS: ACCU-CHEK COMFORT CURVE STRIP VI SCH (22:57)
[2020-12-26] MEDS: ENOXAPARIN SOD 40 MG/0.4 ML SYRINGE SC SCH (22:57)
[2020-12-26] MEDS: InsuLIN REG 1unit/0.01ml Soln (100units/ml) SC SCH (22:57)
[2020-12-26] MEDS: FAMOTIDINE (10MG/ML) 2ML VL IV SCH (22:57)
[2020-12-26] MEDS ORDERED: INFLUENZA QUAD 2020-2021 0.5 ML SYRG IM ONE (23:45)
[2020-12-26] MEDS ORDERED: METF-371 PO (23:48)
[2020-12-27] VITALS: BP 124/70
[2020-12-27] MEDS: BUDESONIDE (INHALATION) 180 MCG IH IN SCH ×2 (06:23→21:33)
[2020-12-27] MEDS: InsuLIN REG 1unit/0.01ml Soln (100units/ml) SC SCH ×4 (06:29→21:45)
[2020-12-27] MEDS: ACCU-CHEK COMFORT CURVE STRIP VI SCH ×4 (06:29→21:43)
[2020-12-27] MEDS ORDERED: IVERMECTIN 3 MG TAB PO ONE (07:00)
[2020-12-27 07:53] LABS: Basophils # (auto) 0 10 ^3/uL (0-0.2); Basophils % (auto) 0.2 % (0.0-2.0); Eosinophils # (auto) 0 10 ^3/uL (0-0.8); Lymphocytes # (auto) 0.3 10 ^3/uL (0.4-5.4); Nucleated Red Blood Cells % 0.2 %
[2020-12-27 07:56] LABS: Hematocrit 30.9 % (41.0-53.0); Hemoglobin 10.3 g/dL (13.5-17.5); Lymphocytes % (auto) 5.8 % (10.0-50.0); Mean Corpuscular Hgb Conc. 33.5 g/dL (32.0-36.0); Mean Corpuscular Volume 77.6 fL (80.0-100.0); Monocytes # (auto) 0.7 10 ^3/uL (0-1.3); Monocytes % (auto) 11.1 % (0.0-12.0); Neutrophils % (auto) 82.9 % (37.0-80.0); Red Blood Cells 3.98 10^6/uL (4.5-5.90)
[2020-12-27 08:00] VITALS: BP 123/69
[2020-12-27 08:08] LABS: Red Cell Distribution Width 20.8 % (11.8-14.3)
[2020-12-27 08:11] LABS: Potassium 4.2 mmol/L (3.5-5.1)
[2020-12-27 08:18] LABS: Albumin 2.3 g/dL (3.4-5.0); BUN/Creatinine Ratio 38.8; Bilirubin, Total 0.4 mg/dL (0.2-1.0); Calcium 9.2 mg/dL (8.5-10.1); Total Protein 7.7 g/dL (6.4-8.2)
[2020-12-27] MEDS: cefTRIAXone 1GM/50ML D5W 50 ML IV SCH (09:00)
[2020-12-27] MEDS: ASCORBIC ACID 1,000 MG TAB PO SCH (09:34)
[2020-12-27] MEDS: ZINC SULFATE 220mg CAP or TAB PO SCH (09:34)
[2020-12-27] MEDS: CHOLECALCIFEROL (VITD3) 2,000 UNIT CAP/TAB PO SCH (09:35)
[2020-12-27] MEDS: ENOXAPARIN SOD 40 MG/0.4 ML SYRINGE SC SCH ×2 (09:36→21:43)
[2020-12-27] MEDS: DexAMETHasone SOD PHOS 10MG/1ML VIAL INJ IV SCH (09:44)
[2020-12-27] MEDS: AZITHROMYCIN 500MG/ 250ML 250 ML IV SCH (09:50)
[2020-12-27 14:42] VITALS: BP 115/76
[2020-12-27] MEDS ORDERED: REMDESIVIR 200 MG in NS 210ml LOADING DOSE ADULT IV ONE (15:00)
[2020-12-27 15:02] VITALS: BP 114/72
[2020-12-27 16:00] VITALS: BP 132/75
[2020-12-27] MEDS: ALBUTEROL SULF HFA 90MCG INH 200DOSE IN PRN (21:33)
[2020-12-27] MEDS: FAMOTIDINE (10MG/ML) 2ML VL IV SCH (21:43)
[2020-12-28] VITALS: BP 120/80
[2020-12-28] MEDS: InsuLIN REG 1unit/0.01ml Soln (100units/ml) SC SCH ×4 (06:33→21:53)
[2020-12-28] MEDS: ACCU-CHEK COMFORT CURVE STRIP VI SCH ×4 (06:34→21:52)
[2020-12-28 06:49] LABS: Eosinophils # (auto) 0 10 ^3/uL (0-0.8); Eosinophils % (auto) 0.1 % (0.0-7.0); Hematocrit 32.6 % (41.0-53.0); Lymphocytes # (auto) 0.4 10 ^3/uL (0.4-5.4)
[2020-12-28 06:55] LABS: Basophils # (auto) 0.1 10 ^3/uL (0-0.2); Basophils % (auto) 1.8 % (0.0-2.0); Hemoglobin 10.9 g/dL (13.5-17.5); Lymphocytes % (auto) 4.9 % (10.0-50.0); Mean Corpuscular Hemoglobin 26.1 pg (28.0-32.0); Mean Corpuscular Hgb Conc. 33.6 g/dL (32.0-36.0); Mean Corpuscular Volume 77.7 fL (80.0-100.0); Monocytes # (auto) 0.8 10 ^3/uL (0-1.3); Monocytes % (auto) 10.1 % (0.0-12.0); Neutrophils % (auto) 83.1 % (37.0-80.0); Nucleated Red Blood Cells % 0.1 %; Red Blood Cells 4.19 10^6/uL (4.5-5.90); White Blood Cell 8.4 10^3/uL (4.4-10.8)
[2020-12-28 06:56] LABS: Potassium 3.9 mmol/L (3.5-5.1)
[2020-12-28 07:13] LABS: Albumin 2.6 g/dL (3.4-5.0); BUN/Creatinine Ratio 35.7; Bilirubin, Total 0.3 mg/dL (0.2-1.0); Calcium 9.8 mg/dL (8.5-10.1); Total Protein 8.3 g/dL (6.4-8.2)
[2020-12-28] MEDS: BUDESONIDE (INHALATION) 180 MCG IH IN SCH ×2 (07:15→21:57)
[2020-12-28 07:19] LABS: Red Cell Distribution Width 21.2 % (11.8-14.3)
[2020-12-28 08:00] VITALS: BP 144/73
[2020-12-28] MEDS ORDERED: IOHEXOL 350 MG/ML 100ML IJ ONE (09:56)
[2020-12-28] MEDS: ASCORBIC ACID 1,000 MG TAB PO SCH (09:57)
[2020-12-28] MEDS: ZINC SULFATE 220mg CAP or TAB PO SCH (09:58)
[2020-12-28] MEDS: CHOLECALCIFEROL (VITD3) 2,000 UNIT CAP/TAB PO SCH (09:58)
[2020-12-28] MEDS: ENOXAPARIN SOD 40 MG/0.4 ML SYRINGE SC SCH ×2 (09:59→21:52)
[2020-12-28] MEDS: DexAMETHasone SOD PHOS 10MG/1ML VIAL INJ IV SCH (09:59)
[2020-12-28] MEDS: cefTRIAXone 1GM/50ML D5W 50 ML IV SCH (10:00)
[2020-12-28] MEDS: AZITHROMYCIN 500MG/ 250ML 250 ML IV SCH (12:25)
[2020-12-28] MEDS ORDERED: FUROSEMIDE 20 MG/2 ML VIAL IV ONE (15:00)
[2020-12-28] MEDS: REMDESIVIR 100mg 100 MG in SODIUM CHL 0.9% 230 ML IV SCH (15:02)
[2020-12-28 16:00] VITALS: BP 156/78
[2020-12-28] MEDS: FAMOTIDINE (10MG/ML) 2ML VL IV SCH (21:52)
[2020-12-28] MEDS: ALBUTEROL SULF HFA 90MCG INH 200DOSE IN PRN (21:57)
[2020-12-29] MEDS: ALBUTEROL SULF HFA 90MCG INH 200DOSE IN PRN ×2 (06:20→22:02)
[2020-12-29] MEDS: BUDESONIDE (INHALATION) 180 MCG IH IN SCH ×2 (06:20→22:02)
[2020-12-29 06:55] LABS: Basophils # (auto) 0.1 10 ^3/uL (0-0.2); Eosinophils # (auto) 0 10 ^3/uL (0-0.8); Lymphocytes # (auto) 0.2 10 ^3/uL (0.4-5.4); Monocytes # (auto) 1.1 10 ^3/uL (0-1.3); Neutrophils # (auto) 6.1 10 ^3/uL (1.6-8.6); White Blood Cell 7.5 10^3/uL (4.4-10.8)
[2020-12-29 06:57] LABS: Basophils % (auto) 0.8 % (0.0-2.0); Hemoglobin 10.4 g/dL (13.5-17.5); Lymphocytes % (auto) 2.8 % (10.0-50.0); Mean Corpuscular Hemoglobin 26.2 pg (28.0-32.0); Mean Corpuscular Hgb Conc. 33.6 g/dL (32.0-36.0); Mean Corpuscular Volume 77.8 fL (80.0-100.0); Monocytes % (auto) 15.1 % (0.0-12.0); Neutrophils % (auto) 81.3 % (37.0-80.0); Nucleated Red Blood Cells % 0.1 %; Red Blood Cells 3.98 10^6/uL (4.5-5.90)
[2020-12-29] MEDS: InsuLIN REG 1unit/0.01ml Soln (100units/ml) SC SCH ×4 (07:01→23:07)
[2020-12-29] MEDS: ACCU-CHEK COMFORT CURVE STRIP VI SCH ×4 (07:01→22:26)
[2020-12-29 07:05] LABS: Red Cell Distribution Width 21.1 % (11.8-14.3)
[2020-12-29 07:11] LABS: Potassium 3.7 mmol/L (3.5-5.1)
[2020-12-29 07:14] LABS: Albumin 2.7 g/dL (3.4-5.0); BUN/Creatinine Ratio 33.1; Calcium 9.9 mg/dL (8.5-10.1)
[2020-12-29 07:17] LABS: Bilirubin, Total 0.3 mg/dL (0.2-1.0); Total Protein 7.5 g/dL (6.4-8.2)
[2020-12-29] MEDS: ACETAMINOPHEN 500 MG TAB PO PRN (07:24)
[2020-12-29 07:39] VITALS: BP 148/80
[2020-12-29] MEDS: cefTRIAXone 1GM/50ML D5W 50 ML IV SCH (08:46)
[2020-12-29] MEDS: DexAMETHasone SOD PHOS 10MG/1ML VIAL INJ IV SCH (09:36)
[2020-12-29] MEDS: FUROSEMIDE 20 MG/2 ML VIAL IV SCH (09:37)
[2020-12-29] MEDS: ENOXAPARIN SOD 40 MG/0.4 ML SYRINGE SC SCH ×2 (09:40→22:26)
[2020-12-29] MEDS: ZINC SULFATE 220mg CAP or TAB PO SCH (09:40)
[2020-12-29] MEDS: ASCORBIC ACID 1,000 MG TAB PO SCH (09:40)
[2020-12-29] MEDS: CHOLECALCIFEROL (VITD3) 2,000 UNIT CAP/TAB PO SCH (09:41)
[2020-12-29] MEDS: AZITHROMYCIN 500MG/ 250ML 250 ML IV SCH (10:32)
[2020-12-29] MEDS: REMDESIVIR 100mg 100 MG in SODIUM CHL 0.9% 230 ML IV SCH (15:12)
[2020-12-29 15:32] VITALS: BP 153/80
[2020-12-29] MEDS: FAMOTIDINE (10MG/ML) 2ML VL IV SCH ×2 (22:00→23:17)
[2020-12-30] VITALS: BP 144/74
[2020-12-30] MEDS: ACCU-CHEK COMFORT CURVE STRIP VI SCH ×4 (06:07→22:13)
[2020-12-30] MEDS: InsuLIN REG 1unit/0.01ml Soln (100units/ml) SC SCH ×4 (06:16→22:15)
[2020-12-30 06:28] LABS: Basophils # (auto) 0 10 ^3/uL (0-0.2); Basophils % (auto) 0.3 % (0.0-2.0); Eosinophils # (auto) 0 10 ^3/uL (0-0.8); Red Blood Cells 3.93 10^6/uL (4.5-5.90); White Blood Cell 6.9 10^3/uL (4.4-10.8)
[2020-12-30 06:34] LABS: Hematocrit 30.8 % (41.0-53.0); Hemoglobin 10.3 g/dL (13.5-17.5); Lymphocytes # (auto) 0.5 10 ^3/uL (0.4-5.4); Lymphocytes % (auto) 6.6 % (10.0-50.0); Mean Corpuscular Hemoglobin 26.1 pg (28.0-32.0); Mean Corpuscular Hgb Conc. 33.3 g/dL (32.0-36.0); Mean Corpuscular Volume 78.3 fL (80.0-100.0); Monocytes # (auto) 1.2 10 ^3/uL (0-1.3); Monocytes % (auto) 17.3 % (0.0-12.0); Neutrophils # (auto) 5.3 10 ^3/uL (1.6-8.6); Neutrophils % (auto) 75.8 % (37.0-80.0); Nucleated Red Blood Cells % 0.4 %
[2020-12-30] MEDS: ALBUTEROL SULF HFA 90MCG INH 200DOSE IN PRN ×2 (06:40→19:40)
[2020-12-30] MEDS: BUDESONIDE (INHALATION) 180 MCG IH IN SCH ×2 (06:40→19:40)
[2020-12-30 06:43] LABS: Potassium 3.7 mmol/L (3.5-5.1)
[2020-12-30 06:50] LABS: Albumin 2.5 g/dL (3.4-5.0); BUN/Creatinine Ratio 38.8; Bilirubin, Total 0.3 mg/dL (0.2-1.0); Calcium 9.3 mg/dL (8.5-10.1); Total Protein 7.3 g/dL (6.4-8.2)
[2020-12-30 07:13] LABS: Red Cell Distribution Width 21.4 % (11.8-14.3)
[2020-12-30] MEDS: ACETAMINOPHEN 500 MG TAB PO PRN (07:30)
[2020-12-30 08:00] VITALS: BP_SYST 115; BP_SYST 152; BP_DIAS 75; BP_DIAS 84
[2020-12-30] MEDS: cefTRIAXone 1GM/50ML D5W 50 ML IV SCH (08:53)
[2020-12-30] MEDS: FUROSEMIDE 20 MG/2 ML VIAL IV SCH (09:30)
[2020-12-30] MEDS: DexAMETHasone SOD PHOS 10MG/1ML VIAL INJ IV SCH (09:30)
[2020-12-30] MEDS: ZINC SULFATE 220mg CAP or TAB PO SCH (09:32)
[2020-12-30] MEDS: ENOXAPARIN SOD 40 MG/0.4 ML SYRINGE SC SCH ×2 (09:32→22:05)
[2020-12-30] MEDS: ASCORBIC ACID 1,000 MG TAB PO SCH (09:32)
[2020-12-30] MEDS: CHOLECALCIFEROL (VITD3) 2,000 UNIT CAP/TAB PO SCH (09:36)
[2020-12-30] MEDS: AZITHROMYCIN 500MG/ 250ML 250 ML IV SCH (10:17)
[2020-12-30] MEDS: REMDESIVIR 100mg 100 MG in SODIUM CHL 0.9% 230 ML IV SCH (14:51)
[2020-12-30 16:00] VITALS: BP 163/98
[2020-12-30] MEDS: FAMOTIDINE (10MG/ML) 2ML VL IV SCH (22:04)
[2020-12-31] VITALS: BP 157/86
[2020-12-31] MEDS: ACCU-CHEK COMFORT CURVE STRIP VI SCH ×4 (06:23→21:55)
[2020-12-31] MEDS: InsuLIN REG 1unit/0.01ml Soln (100units/ml) SC SCH ×4 (06:26→21:56)
[2020-12-31] MEDS: BUDESONIDE (INHALATION) 180 MCG IH IN SCH ×2 (07:03→20:41)
[2020-12-31] MEDS: ALBUTEROL SULF HFA 90MCG INH 200DOSE IN PRN (07:03)
[2020-12-31 08:00] VITALS: BP 140/78
[2020-12-31] MEDS: ZINC SULFATE 220mg CAP or TAB PO SCH (10:00)
[2020-12-31] MEDS: CHOLECALCIFEROL (VITD3) 2,000 UNIT CAP/TAB PO SCH (10:00)
[2020-12-31] MEDS: ASCORBIC ACID 1,000 MG TAB PO SCH (10:00)
[2020-12-31 10:18] LABS: Calcium 9.7 mg/dL (8.5-10.1); Potassium 5.1 mmol/L (3.5-5.1)
[2020-12-31 10:29] LABS: Bilirubin, Total 0.5 mg/dL (0.2-1.0); Total Protein 8.1 g/dL (6.4-8.2)
[2020-12-31 10:37] LABS: Albumin 2.7 g/dL (3.4-5.0); BUN/Creatinine Ratio 35.1
[2020-12-31 16:00] VITALS: BP 164/94
[2020-12-31] MEDS: hydrALAZINE HCL 20 MG/ML VL IV PRN (17:40)
[2020-12-31] MEDS: AZITHROMYCIN 500MG/ 250ML 250 ML IV SCH (18:10)
[2020-12-31] MEDS: cefTRIAXone 1GM/50ML D5W 50 ML IV SCH (18:10)
[2020-12-31] MEDS: REMDESIVIR 100mg 100 MG in SODIUM CHL 0.9% 230 ML IV SCH (18:11)
[2020-12-31] MEDS: ENOXAPARIN SOD 40 MG/0.4 ML SYRINGE SC SCH ×2 (18:11→21:55)
[2020-12-31] MEDS: DexAMETHasone SOD PHOS 10MG/1ML VIAL INJ IV SCH (18:14)
[2020-12-31] MEDS: FAMOTIDINE (10MG/ML) 2ML VL IV SCH (21:55)
[2020-12-31 23:45] VITALS: BP 102/89
[2021-01-01] MEDS: LORazepam 2MG/ML-1ML VIAL IV PRN ×2 (02:42→18:33)
[2021-01-01 06:00] VITALS: BP 146/101
[2021-01-01 06:22] LABS: Basophils # (auto) 0 10 ^3/uL (0-0.2); Eosinophils # (auto) 0 10 ^3/uL (0-0.8); Eosinophils % (auto) 0.1 % (0.0-7.0); Nucleated Red Blood Cells % 0.3 %; White Blood Cell 8.6 10^3/uL (4.4-10.8)
[2021-01-01 06:25] LABS: Basophils % (auto) 0.6 % (0.0-2.0); Hematocrit 34.4 % (41.0-53.0); Lymphocytes # (auto) 0.3 10 ^3/uL (0.4-5.4); Lymphocytes % (auto) 3.4 % (10.0-50.0); Mean Corpuscular Hemoglobin 25.4 pg (28.0-32.0); Mean Corpuscular Volume 79.4 fL (80.0-100.0); Monocytes # (auto) 1.4 10 ^3/uL (0-1.3); Neutrophils # (auto) 6.9 10 ^3/uL (1.6-8.6); Neutrophils % (auto) 79.9 % (37.0-80.0); Red Blood Cells 4.34 10^6/uL (4.5-5.90)
[2021-01-01 06:37] LABS: Calcium 9.3 mg/dL (8.5-10.1)
[2021-01-01 06:40] LABS: BUN/Creatinine Ratio 35.2
[2021-01-01] MEDS: ACCU-CHEK COMFORT CURVE STRIP VI SCH ×4 (06:56→22:01)
[2021-01-01] MEDS: InsuLIN REG 1unit/0.01ml Soln (100units/ml) SC SCH ×4 (06:59→22:11)
[2021-01-01] MEDS: cefTRIAXone 1GM/50ML D5W 50 ML IV SCH (08:18)
[2021-01-01] MEDS: AZITHROMYCIN 500MG/ 250ML 250 ML IV SCH (08:19)
[2021-01-01] MEDS: ENOXAPARIN SOD 40 MG/0.4 ML SYRINGE SC SCH ×2 (08:19→22:02)
[2021-01-01] MEDS: hydrALAZINE HCL 20 MG/ML VL IV PRN (08:20)
[2021-01-01] MEDS: ZINC SULFATE 220mg CAP or TAB PO SCH (10:00)
[2021-01-01] MEDS: CHOLECALCIFEROL (VITD3) 2,000 UNIT CAP/TAB PO SCH (10:00)
[2021-01-01] MEDS: ASCORBIC ACID 1,000 MG TAB PO SCH (10:00)
[2021-01-01 13:53] LABS: CRP High Sensitivity 4.4 mg/dL (< 0.3)
[2021-01-01 16:00] VITALS: BP 146/89
[2021-01-01] MEDS: D5W 5% 1,000 ML IV SCH (18:33)
[2021-01-01] MEDS: ACETAMINOPHEN 650 mg PER 20.3 mL UD PO SCH (20:30)
[2021-01-01] MEDS: diphenhdrAMINE HCL 50 MG/1 ML VL IV SCH (20:32)
[2021-01-01] MEDS: methylPREDNISolone SOD SUCC 40 MG/ML VL IV SCH (20:32)
[2021-01-01] MEDS: TOCILIZUMAB 400 MG in SODIUM CHL 0.9% 80 ML IV SCH (21:06)
[2021-01-01] MEDS: ALBUTEROL SULF HFA 90MCG INH 200DOSE IN PRN (21:16)
[2021-01-01] MEDS: BUDESONIDE (INHALATION) 180 MCG IH IN SCH (21:16)
[2021-01-01] MEDS: FAMOTIDINE (10MG/ML) 2ML VL IV SCH (22:02)
[2021-01-02] VITALS: BP 129/63
[2021-01-02] MEDS: D5W 5% 1,000 ML IV SCH (03:10)
[2021-01-02] MEDS: ACCU-CHEK COMFORT CURVE STRIP VI SCH ×4 (06:14→21:29)
[2021-01-02] MEDS: InsuLIN REG 1unit/0.01ml Soln (100units/ml) SC SCH ×4 (06:15→21:35)
[2021-01-02 07:00] LABS: Basophils # (auto) 0 10 ^3/uL (0-0.2); Basophils % (auto) 0.1 % (0.0-2.0); Eosinophils # (auto) 0 10 ^3/uL (0-0.8); Lymphocytes # (auto) 0.2 10 ^3/uL (0.4-5.4); Lymphocytes % (auto) 2.8 % (10.0-50.0); Mean Corpuscular Volume 79.8 fL (80.0-100.0); Monocytes # (auto) 0.5 10 ^3/uL (0-1.3)
[2021-01-02 07:06] LABS: Hematocrit 34.9 % (41.0-53.0); Hemoglobin 11.4 g/dL (13.5-17.5); Mean Corpuscular Hemoglobin 26.1 pg (28.0-32.0); Mean Corpuscular Hgb Conc. 32.7 g/dL (32.0-36.0); Monocytes % (auto) 8.1 % (0.0-12.0); Neutrophils # (auto) 5.9 10 ^3/uL (1.6-8.6); Nucleated Red Blood Cells % 0.2 %; Red Blood Cells 4.37 10^6/uL (4.5-5.90); White Blood Cell 6.7 10^3/uL (4.4-10.8)
[2021-01-02 07:20] LABS: Red Cell Distribution Width 21.6 % (11.8-14.3)
[2021-01-02 07:40] LABS: Potassium 4.2 mmol/L (3.5-5.1)
[2021-01-02 08:11] VITALS: BP 152/80
[2021-01-02 08:13] LABS: BUN/Creatinine Ratio 29.9; CRP High Sensitivity 5.38 mg/dL (< 0.3); Calcium 8.8 mg/dL (8.5-10.1)
[2021-01-02] MEDS: ACETAMINOPHEN 650 mg PER 20.3 mL UD PO SCH (09:30)
[2021-01-02] MEDS: ZINC SULFATE 220mg CAP or TAB PO SCH (10:00)
[2021-01-02] MEDS: CHOLECALCIFEROL (VITD3) 2,000 UNIT CAP/TAB PO SCH (10:00)
[2021-01-02] MEDS: ASCORBIC ACID 1,000 MG TAB PO SCH (10:00)
[2021-01-02] MEDS: BUDESONIDE (INHALATION) 180 MCG IH IN SCH ×2 (10:04→20:17)
[2021-01-02] MEDS: ALBUTEROL SULF HFA 90MCG INH 200DOSE IN PRN ×2 (10:04→20:18)
[2021-01-02] MEDS: LORazepam 2MG/ML-1ML VIAL IV PRN ×2 (11:45→18:45)
[2021-01-02] MEDS: cefTRIAXone 1GM/50ML D5W 50 ML IV SCH (11:50)
[2021-01-02] MEDS: ENOXAPARIN SOD 40 MG/0.4 ML SYRINGE SC SCH ×2 (11:51→21:29)
[2021-01-02] MEDS ORDERED: methylPREDNISolone SOD SUCC 40 MG/ML VL IV ONE (13:45)
[2021-01-02] MEDS ORDERED: diphenhdrAMINE HCL 50 MG/1 ML VL IV ONE (13:45)
[2021-01-02] MEDS: methylPREDNISolone SOD SUCC 40 MG/ML VL IV SCH (14:02)
[2021-01-02] MEDS: diphenhdrAMINE HCL 50 MG/1 ML VL IV SCH (14:03)
[2021-01-02] MEDS: TOCILIZUMAB 400 MG in SODIUM CHL 0.9% 80 ML IV SCH (14:30)
[2021-01-02 16:01] VITALS: BP 182/102
[2021-01-02] MEDS: hydrALAZINE HCL 20 MG/ML VL IV PRN (16:23)
[2021-01-02 17:14] VITALS: BP 125/82
[2021-01-02] MEDS: FAMOTIDINE (10MG/ML) 2ML VL IV SCH (21:29)
[2021-01-03] VITALS (25 sets, daily range): BP systolic 70–157; BP diastolic 50–89
[2021-01-03] MEDS: LORazepam 2MG/ML-1ML VIAL IV PRN ×4 (01:13→17:58)
[2021-01-03] MEDS: ACCU-CHEK COMFORT CURVE STRIP VI SCH ×4 (06:18→22:00)
[2021-01-03] MEDS: InsuLIN REG 1unit/0.01ml Soln (100units/ml) SC SCH ×4 (06:27→22:00)
[2021-01-03] MEDS: ENOXAPARIN SOD 40 MG/0.4 ML SYRINGE SC SCH ×2 (08:43→22:00)
[2021-01-03] MEDS: ZINC SULFATE 220mg CAP or TAB PO SCH (08:54)
[2021-01-03] MEDS: ASCORBIC ACID 1,000 MG TAB PO SCH (08:54)
[2021-01-03] MEDS: CHOLECALCIFEROL (VITD3) 2,000 UNIT CAP/TAB PO SCH (08:54)
[2021-01-03] MEDS: BUDESONIDE (INHALATION) 180 MCG IH IN SCH (09:51)
[2021-01-03] MEDS ORDERED: SODIUM CHLORIDE 0.9% 500 ML IV ONE (15:30)
[2021-01-03 17:58] LABS: Hematocrit 39.6 % (41.0-53.0); Hemoglobin 12.7 g/dL (13.5-17.5); Mean Corpuscular Hemoglobin 25.7 pg (28.0-32.0); Mean Corpuscular Hgb Conc. 31.9 g/dL (32.0-36.0); Mean Corpuscular Volume 80.4 fL (80.0-100.0); Red Blood Cells 4.93 10^6/uL (4.5-5.90); White Blood Cell 9.5 10^3/uL (4.4-10.8)
[2021-01-03 18:07] LABS: Calcium 9.1 mg/dL (8.5-10.1); Potassium 4.1 mmol/L (3.5-5.1)
[2021-01-03 18:11] LABS: Lactic Acid w/Reflex 2.1 mmol/L (0.4-2.0)
[2021-01-03 18:13] LABS: BUN/Creatinine Ratio 27.7
[2021-01-03] MEDS ORDERED: SUCCINYLCHOLINE CHLORIDE 20 MG/ML 10ML VIAL IV ONE ×2 (18:13→18:30)
[2021-01-03] MEDS ORDERED: ROCURONIUM 10MG/ML 10ML VIAL IV ONE (18:13)
[2021-01-03] MEDS ORDERED: ETOMIDATE (2MG/ML) 20ML VIAL IV ONE ×2 (18:13→18:30)
[2021-01-03 18:20] LABS: Basophils % (manual) 0 (0.0-2.0); Blast Cells 0; Eosinophils % (manual) 0 (0-7); Metamyelocytes % 0; Myelocytes % 0; Promyelocytes % 0; Reactive Lymphocytes 0
[2021-01-03] MEDS ORDERED: PROPOFOL 100 ML IV ONE (18:20)
[2021-01-03] MEDS ORDERED: MIDAZOLAM DRIP 50 mg/50mL 50 ML IV ONE (18:42)
[2021-01-03 19:10] LABS: Band Neutrophils % (manual) 14; Lymphocytes % (manual) 8 (10.0-50.0); Monocytes % (manual) 9 (0-12)
[2021-01-03] MEDS: NOREPINEPHRINE 8 MG/250ML KIT 250 ML IV SCH (21:15)
[2021-01-03] MEDS: MEROPENEM 1GM IVPB 100 ML IV SCH (22:00)
[2021-01-03] MEDS: FAMOTIDINE (10MG/ML) 2ML VL IV SCH (22:00)
[2021-01-03] MEDS: PROPOFOL 100 ML IV SCH (22:00)
[2021-01-03] MEDS: MIDAZOLAM DRIP 50 mg/50mL 50 ML IV SCH (22:01)
[2021-01-03] MEDS: fentaNYL Drip 2500mCg/250mlNS 250 ML IV SCH (22:05)
[2021-01-04] VITALS (72 sets, daily range): BP systolic 100–157; BP diastolic 48–70
[2021-01-04] MEDS: MIDAZOLAM DRIP 50 mg/50mL 50 ML IV SCH (00:47)
[2021-01-04 05:02] LABS: Calcium 8.8 mg/dL (8.5-10.1); Potassium 3.8 mmol/L (3.5-5.1)
[2021-01-04 05:04] LABS: Basophils # (auto) 0.1 10 ^3/uL (0-0.2); Basophils % (auto) 0.6 % (0.0-2.0); Eosinophils # (auto) 0.1 10 ^3/uL (0-0.8); Hematocrit 33.8 % (41.0-53.0); Hemoglobin 10.7 g/dL (13.5-17.5); Lymphocytes # (auto) 0.8 10 ^3/uL (0.4-5.4); Lymphocytes % (auto) 7.3 % (10.0-50.0); Mean Corpuscular Hemoglobin 25.2 pg (28.0-32.0); Mean Corpuscular Hgb Conc. 31.7 g/dL (32.0-36.0); Mean Corpuscular Volume 79.6 fL (80.0-100.0); Monocytes # (auto) 0.9 10 ^3/uL (0-1.3); Neutrophils # (auto) 9.5 10 ^3/uL (1.6-8.6); Neutrophils % (auto) 83.1 % (37.0-80.0); Nucleated Red Blood Cells % 0.4 %; Red Blood Cells 4.24 10^6/uL (4.5-5.90); Red Cell Distribution Width 21.8 % (11.8-14.3); White Blood Cell 11.4 10^3/uL (4.4-10.8)
[2021-01-04 05:12] LABS: BUN/Creatinine Ratio 31.5
[2021-01-04] MEDS: BUDESONIDE (INHALATION) 180 MCG IH IN SCH (06:20)
[2021-01-04] MEDS ORDERED: ALBUTEROL SULF 2.5 MG/0.5ML(0.5%) NEB SOLN ONE (06:20)
[2021-01-04] MEDS: InsuLIN REG 1unit/0.01ml Soln (100units/ml) SC SCH ×4 (06:47→22:00)
[2021-01-04] MEDS: ACCU-CHEK COMFORT CURVE STRIP VI SCH ×4 (06:47→22:00)
[2021-01-04] MEDS: MEROPENEM 1GM IVPB 100 ML IV SCH ×2 (10:00→22:00)
[2021-01-04] MEDS: ENOXAPARIN SOD 40 MG/0.4 ML SYRINGE SC SCH ×2 (10:00→22:00)
[2021-01-04] MEDS: ASCORBIC ACID 1,000 MG TAB PO SCH (10:00)
[2021-01-04] MEDS: CHOLECALCIFEROL (VITD3) 2,000 UNIT CAP/TAB PO SCH (10:00)
[2021-01-04] MEDS: ZINC SULFATE 220mg CAP or TAB PO SCH (10:00)
[2021-01-04] MEDS: NOREPINEPHRINE 8 MG/250ML KIT 250 ML IV SCH (21:15)
[2021-01-04] MEDS: FAMOTIDINE (10MG/ML) 2ML VL IV SCH (22:00)
[2021-01-05] VITALS (88 sets, daily range): BP systolic 93–153; BP diastolic 16–76
[2021-01-05] MEDS: PROPOFOL 100 ML IV SCH ×2 (05:18→21:46)
[2021-01-05] MEDS: fentaNYL Drip 2500mCg/250mlNS 250 ML IV SCH ×2 (05:18→21:46)
[2021-01-05 05:24] LABS: Basophils # (auto) 0 10 ^3/uL (0-0.2); Eosinophils # (auto) 0 10 ^3/uL (0-0.8); Hemoglobin 10.4 g/dL (13.5-17.5); Monocytes # (auto) 0.7 10 ^3/uL (0-1.3); Neutrophils # (auto) 5.2 10 ^3/uL (1.6-8.6); White Blood Cell 6.6 10^3/uL (4.4-10.8)
[2021-01-05 05:26] LABS: Eosinophils % (auto) 0.7 % (0.0-7.0); Hematocrit 31.9 % (41.0-53.0); Lymphocytes # (auto) 0.6 10 ^3/uL (0.4-5.4); Lymphocytes % (auto) 9.3 % (10.0-50.0); Mean Corpuscular Hemoglobin 25.7 pg (28.0-32.0); Mean Corpuscular Hgb Conc. 32.5 g/dL (32.0-36.0); Mean Corpuscular Volume 79.1 fL (80.0-100.0); Monocytes % (auto) 11.1 % (0.0-12.0); Neutrophils % (auto) 78.9 % (37.0-80.0); Nucleated Red Blood Cells % 0.2 %; Red Blood Cells 4.04 10^6/uL (4.5-5.90)
[2021-01-05] MEDS: ACCU-CHEK COMFORT CURVE STRIP VI SCH ×4 (05:26→21:47)
[2021-01-05] MEDS: InsuLIN REG 1unit/0.01ml Soln (100units/ml) SC SCH ×4 (05:26→21:47)
[2021-01-05 05:39] LABS: BUN/Creatinine Ratio 27.1; Calcium 8.2 mg/dL (8.5-10.1); Potassium 3.6 mmol/L (3.5-5.1)
[2021-01-05 06:30] LABS: Red Cell Distribution Width 21.6 % (11.8-14.3)
[2021-01-05] MEDS: MEROPENEM 1GM IVPB 100 ML IV SCH ×2 (09:59→21:47)
[2021-01-05] MEDS: ZINC SULFATE 220mg CAP or TAB PO SCH (09:59)
[2021-01-05] MEDS: ASCORBIC ACID 1,000 MG TAB PO SCH (10:00)
[2021-01-05] MEDS: ENOXAPARIN SOD 40 MG/0.4 ML SYRINGE SC SCH ×2 (10:00→21:47)
[2021-01-05] MEDS: CHOLECALCIFEROL (VITD3) 2,000 UNIT CAP/TAB PO SCH (10:00)
[2021-01-05] MEDS: NOREPINEPHRINE 8 MG/250ML KIT 250 ML IV SCH (21:15)
[2021-01-05] MEDS: MIDAZOLAM DRIP 50 mg/50mL 50 ML IV SCH (21:46)
[2021-01-05] MEDS: FAMOTIDINE (10MG/ML) 2ML VL IV SCH (21:47)
[2021-01-05] MEDS: BUDESONIDE (INHALATION) 180 MCG IH IN SCH (22:00)
[2021-01-06] VITALS (33 sets, daily range): BP systolic 102–173; BP diastolic 52–80
[2021-01-06 04:25] LABS: Hemoglobin 10.9 g/dL (13.5-17.5); Lymphocytes # (auto) 0.5 10 ^3/uL (0.4-5.4); Lymphocytes % (auto) 8.4 % (10.0-50.0); Nucleated Red Blood Cells % 0.7 %; White Blood Cell 6.5 10^3/uL (4.4-10.8)
[2021-01-06 04:28] LABS: Basophils # (auto) 0 10 ^3/uL (0-0.2); Basophils % (auto) 0.3 % (0.0-2.0); Eosinophils # (auto) 0.1 10 ^3/uL (0-0.8); Eosinophils % (auto) 1.7 % (0.0-7.0); Hematocrit 32.9 % (41.0-53.0); Mean Corpuscular Hemoglobin 26.4 pg (28.0-32.0); Mean Corpuscular Hgb Conc. 33.1 g/dL (32.0-36.0); Mean Corpuscular Volume 79.9 fL (80.0-100.0); Monocytes # (auto) 0.8 10 ^3/uL (0-1.3); Monocytes % (auto) 12.5 % (0.0-12.0); Neutrophils % (auto) 77.1 % (37.0-80.0); Red Blood Cells 4.11 10^6/uL (4.5-5.90)
[2021-01-06 04:45] LABS: Potassium 5.3 mmol/L (3.5-5.1)
[2021-01-06 04:49] LABS: Calcium 8.5 mg/dL (8.5-10.1)
[2021-01-06 06:24] LABS: Red Cell Distribution Width 21.8 % (11.8-14.3)
[2021-01-06] MEDS: InsuLIN REG 1unit/0.01ml Soln (100units/ml) SC SCH ×4 (07:00→21:02)
[2021-01-06] MEDS: ACCU-CHEK COMFORT CURVE STRIP VI SCH ×4 (07:00→21:03)
[2021-01-06] MEDS ORDERED: DEXTROSE (50%) 50ML SYRG IV ONE (09:00)
[2021-01-06] MEDS ORDERED: SODIUM BICARBONATE 8.4% INJ 50ML SYRINGE IV ONE (09:00)
[2021-01-06] MEDS ORDERED: InsuLIN REG 1unit/0.01ml Soln (100units/ml) IV ONE (09:00)
[2021-01-06] MEDS ORDERED: ALBUTEROL SULF 2.5 MG/0.5ML(0.5%) NEB SOLN NEB ONE (09:00)
[2021-01-06] MEDS: MEROPENEM 1GM IVPB 100 ML IV SCH ×2 (09:33→21:02)
[2021-01-06] MEDS: ASCORBIC ACID 1,000 MG TAB PO SCH (10:25)
[2021-01-06] MEDS: ZINC SULFATE 220mg CAP or TAB PO SCH (10:25)
[2021-01-06] MEDS: CHOLECALCIFEROL (VITD3) 2,000 UNIT CAP/TAB PO SCH (10:25)
[2021-01-06] MEDS: ENOXAPARIN SOD 40 MG/0.4 ML SYRINGE SC SCH ×2 (10:25→21:02)
[2021-01-06] MEDS: FREE WATER GT SCH ×3 (14:15→21:02)
[2021-01-06] MEDS: BUDESONIDE (INHALATION) 180 MCG IH IN SCH (18:57)
[2021-01-06] MEDS ORDERED: Glucerna 1.2 Cal 1Liter BOTTLE GT SCH (19:00)
[2021-01-06] MEDS: fentaNYL Drip 2500mCg/250mlNS 250 ML IV SCH (20:21)
[2021-01-06] MEDS: PROPOFOL 100 ML IV SCH (20:21)
[2021-01-06] MEDS: MIDAZOLAM DRIP 50 mg/50mL 50 ML IV SCH (20:21)
[2021-01-06] MEDS: NOREPINEPHRINE 8 MG/250ML KIT 250 ML IV SCH (20:21)
[2021-01-06] MEDS: FAMOTIDINE (10MG/ML) 2ML VL IV SCH (21:02)
[2021-01-07] VITALS (41 sets, daily range): BP systolic 101–177; BP diastolic 38–82
[2021-01-07] MEDS: FREE WATER GT SCH ×6 (01:26→21:06)
[2021-01-07] MEDS: hydrALAZINE HCL 20 MG/ML VL IV PRN (01:32)
[2021-01-07 05:07] LABS: Hematocrit 36.9 % (41.0-53.0); Hemoglobin 11.8 g/dL (13.5-17.5); Mean Corpuscular Hemoglobin 25.5 pg (28.0-32.0); Mean Corpuscular Hgb Conc. 31.9 g/dL (32.0-36.0); Mean Corpuscular Volume 79.9 fL (80.0-100.0); Red Blood Cells 4.62 10^6/uL (4.5-5.90); White Blood Cell 12.4 10^3/uL (4.4-10.8)
[2021-01-07 05:28] LABS: Red Cell Distribution Width 21.9 % (11.8-14.3)
[2021-01-07 05:29] LABS: Basophils % (manual) 0 (0.0-2.0); Blast Cells 0; Myelocytes % 0; Promyelocytes % 0; Reactive Lymphocytes 0
[2021-01-07 05:40] LABS: Calcium 8.2 mg/dL (8.5-10.1); Potassium 4.8 mmol/L (3.5-5.1)
[2021-01-07 05:44] LABS: BUN/Creatinine Ratio 31.3
[2021-01-07 06:39] LABS: Band Neutrophils % (manual) 20; Eosinophils % (manual) 1 (0-7); Lymphocytes % (manual) 4 (10.0-50.0); Metamyelocytes % 3; Monocytes % (manual) 3 (0-12)
[2021-01-07] MEDS: InsuLIN REG 1unit/0.01ml Soln (100units/ml) SC SCH ×4 (06:44→21:13)
[2021-01-07] MEDS: ACCU-CHEK COMFORT CURVE STRIP VI SCH ×4 (06:44→21:07)
[2021-01-07] MEDS: CHOLECALCIFEROL (VITD3) 2,000 UNIT CAP/TAB PO SCH (10:00)
[2021-01-07] MEDS: MEROPENEM 1GM IVPB 100 ML IV SCH ×2 (10:37→21:07)
[2021-01-07] MEDS: ZINC SULFATE 220mg CAP or TAB PO SCH (10:38)
[2021-01-07] MEDS: ASCORBIC ACID 1,000 MG TAB PO SCH (10:38)
[2021-01-07] MEDS: D5W 5% 1,000 ML IV SCH ×2 (11:00→20:52)
[2021-01-07] MEDS: BUDESONIDE (INHALATION) 0.5 MG/2 ML NEB NEB SCH (18:37)
[2021-01-07] MEDS: ALBUTEROL SULF 2.5 MG/0.5ML(0.5%) NEB SOLN NEB PRN (18:37)
[2021-01-07] MEDS: PROPOFOL 100 ML IV SCH (18:45)
[2021-01-07] MEDS: MIDAZOLAM DRIP 50 mg/50mL 50 ML IV SCH (18:45)
[2021-01-07] MEDS: fentaNYL Drip 2500mCg/250mlNS 250 ML IV SCH (18:45)
[2021-01-07] MEDS: LORazepam 2MG/ML-1ML VIAL IV PRN (20:15)
[2021-01-07] MEDS: NOREPINEPHRINE 8 MG/250ML KIT 250 ML IV SCH (20:53)
[2021-01-07] MEDS: FAMOTIDINE (10MG/ML) 2ML VL IV SCH (21:07)
[2021-01-08] VITALS (29 sets, daily range): BP systolic 106–150; BP diastolic 53–71
[2021-01-08] MEDS: FREE WATER GT SCH ×3 (02:32→09:39)
[2021-01-08] MEDS: LORazepam 2MG/ML-1ML VIAL IV PRN ×3 (03:35→19:36)
[2021-01-08 04:23] LABS: Hemoglobin 9.9 g/dL (13.5-17.5); Mean Corpuscular Volume 80.8 fL (80.0-100.0); White Blood Cell 11.5 10^3/uL (4.4-10.8)
[2021-01-08 04:24] LABS: Hematocrit 30.6 % (41.0-53.0); Mean Corpuscular Hgb Conc. 32.2 g/dL (32.0-36.0); Red Blood Cells 3.79 10^6/uL (4.5-5.90)
[2021-01-08 04:28] LABS: Red Cell Distribution Width 21.6 % (11.8-14.3)
[2021-01-08 04:30] LABS: Basophils % (manual) 0 (0.0-2.0); Blast Cells 0; Myelocytes % 0; Promyelocytes % 0; Reactive Lymphocytes 0
[2021-01-08 04:53] LABS: Calcium 7.2 mg/dL (8.5-10.1); Potassium 3.7 mmol/L (3.5-5.1)
[2021-01-08 04:55] LABS: BUN/Creatinine Ratio 27.5
[2021-01-08 05:18] LABS: Band Neutrophils % (manual) 17; Eosinophils % (manual) 1 (0-7); Lymphocytes % (manual) 12 (10.0-50.0); Metamyelocytes % 1; Monocytes % (manual) 8 (0-12)
[2021-01-08] MEDS: ALBUTEROL SULF 2.5 MG/0.5ML(0.5%) NEB SOLN NEB PRN ×3 (05:46→22:11)
[2021-01-08] MEDS: BUDESONIDE (INHALATION) 0.5 MG/2 ML NEB NEB SCH ×2 (05:46→22:12)
[2021-01-08] MEDS: ACCU-CHEK COMFORT CURVE STRIP VI SCH ×4 (06:24→21:45)
[2021-01-08] MEDS: D5W 5% 1,000 ML IV SCH (06:25)
[2021-01-08] MEDS: InsuLIN REG 1unit/0.01ml Soln (100units/ml) SC SCH ×4 (06:25→21:45)
[2021-01-08] MEDS: ZINC SULFATE 220mg CAP or TAB PO SCH (09:37)
[2021-01-08] MEDS: ASCORBIC ACID 1,000 MG TAB PO SCH (09:37)
[2021-01-08] MEDS: MEROPENEM 1GM IVPB 100 ML IV SCH ×2 (09:38→21:44)
[2021-01-08] MEDS: CHOLECALCIFEROL (VITD3) 2,000 UNIT CAP/TAB PO SCH (09:39)
[2021-01-08] MEDS: ACETAMINOPHEN 500 MG TAB PO PRN (18:38)
[2021-01-08] MEDS: PROPOFOL 100 ML IV SCH (18:45)
[2021-01-08] MEDS: fentaNYL Drip 2500mCg/250mlNS 250 ML IV SCH (18:45)
[2021-01-08] MEDS: MIDAZOLAM DRIP 50 mg/50mL 50 ML IV SCH (18:45)
[2021-01-08] MEDS: NOREPINEPHRINE 8 MG/250ML KIT 250 ML IV SCH (21:15)
[2021-01-08] MEDS: FAMOTIDINE (10MG/ML) 2ML VL IV SCH (21:44)
[2021-01-09] VITALS (36 sets, daily range): BP systolic 105–142; BP diastolic 48–83
[2021-01-09] MEDS: LORazepam 2MG/ML-1ML VIAL IV PRN (04:58)
[2021-01-09 05:09] LABS: Hemoglobin 9.6 g/dL (13.5-17.5)
[2021-01-09 05:11] LABS: Hematocrit 29.3 % (41.0-53.0); Mean Corpuscular Hemoglobin 26.1 pg (28.0-32.0); Mean Corpuscular Hgb Conc. 32.7 g/dL (32.0-36.0); Mean Corpuscular Volume 79.7 fL (80.0-100.0); Red Blood Cells 3.68 10^6/uL (4.5-5.90); White Blood Cell 8.6 10^3/uL (4.4-10.8)
[2021-01-09 05:13] LABS: Red Cell Distribution Width 21.1 % (11.8-14.3)
[2021-01-09 05:14] LABS: Basophils % (manual) 0 (0.0-2.0); Blast Cells 0; Myelocytes % 0; Promyelocytes % 0
[2021-01-09 05:35] LABS: BUN/Creatinine Ratio 26.5; Calcium 7.4 mg/dL (8.5-10.1); Potassium 3.9 mmol/L (3.5-5.1)
[2021-01-09 05:51] LABS: Band Neutrophils % (manual) 23; Eosinophils % (manual) 1 (0-7); Lymphocytes % (manual) 7 (10.0-50.0); Metamyelocytes % 2; Monocytes % (manual) 7 (0-12); Reactive Lymphocytes 1
[2021-01-09] MEDS: MEROPENEM 1GM IVPB 100 ML IV SCH ×3 (06:14→23:27)
[2021-01-09] MEDS: InsuLIN REG 1unit/0.01ml Soln (100units/ml) SC SCH ×4 (06:17→22:00)
[2021-01-09] MEDS: ACCU-CHEK COMFORT CURVE STRIP VI SCH ×4 (06:17→23:28)
[2021-01-09] MEDS: BUDESONIDE (INHALATION) 0.5 MG/2 ML NEB NEB SCH ×2 (09:07→22:30)
[2021-01-09] MEDS: ALBUTEROL SULF 2.5 MG/0.5ML(0.5%) NEB SOLN NEB PRN ×3 (09:07→22:30)
[2021-01-09] MEDS: CHOLECALCIFEROL (VITD3) 2,000 UNIT CAP/TAB PO SCH (09:20)
[2021-01-09] MEDS: ASCORBIC ACID 1,000 MG TAB PO SCH (09:20)
[2021-01-09] MEDS: ZINC SULFATE 220mg CAP or TAB PO SCH (09:20)
[2021-01-09] MEDS: MIDAZOLAM DRIP 50 mg/50mL 50 ML IV SCH (18:45)
[2021-01-09] MEDS: fentaNYL Drip 2500mCg/250mlNS 250 ML IV SCH (18:45)
[2021-01-09] MEDS: PROPOFOL 100 ML IV SCH (18:45)
[2021-01-09] MEDS: NOREPINEPHRINE 8 MG/250ML KIT 250 ML IV SCH (21:15)
[2021-01-09] MEDS: FAMOTIDINE (10MG/ML) 2ML VL IV SCH (23:27)
[2021-01-10] VITALS (60 sets, daily range): BP systolic 102–187; BP diastolic 42–89
[2021-01-10 04:35] LABS: Basophils # (auto) 0.1 10 ^3/uL (0-0.2); Eosinophils # (auto) 0.1 10 ^3/uL (0-0.8); Hemoglobin 9.1 g/dL (13.5-17.5); Lymphocytes # (auto) 0.6 10 ^3/uL (0.4-5.4); Nucleated Red Blood Cells % 0.1 %
[2021-01-10 04:37] LABS: Basophils % (auto) 0.8 % (0.0-2.0); Eosinophils % (auto) 1.2 % (0.0-7.0); Hematocrit 27.5 % (41.0-53.0); Mean Corpuscular Hemoglobin 26.5 pg (28.0-32.0); Mean Corpuscular Volume 80.2 fL (80.0-100.0); Monocytes # (auto) 1.3 10 ^3/uL (0-1.3); Monocytes % (auto) 16.8 % (0.0-12.0); Neutrophils # (auto) 5.7 10 ^3/uL (1.6-8.6); Neutrophils % (auto) 73.2 % (37.0-80.0); Red Blood Cells 3.43 10^6/uL (4.5-5.90); Red Cell Distribution Width 20.9 % (11.8-14.3); White Blood Cell 7.8 10^3/uL (4.4-10.8)
[2021-01-10 04:49] LABS: Calcium 7.5 mg/dL (8.5-10.1); Potassium 4.2 mmol/L (3.5-5.1)
[2021-01-10 04:52] LABS: BUN/Creatinine Ratio 25.9
[2021-01-10] MEDS: MEROPENEM 1GM IVPB 100 ML IV SCH ×3 (05:24→21:15)
[2021-01-10] MEDS: InsuLIN REG 1unit/0.01ml Soln (100units/ml) SC SCH ×4 (05:24→22:00)
[2021-01-10] MEDS: ACCU-CHEK COMFORT CURVE STRIP VI SCH ×4 (05:25→22:48)
[2021-01-10] MEDS: BUDESONIDE (INHALATION) 0.5 MG/2 ML NEB NEB SCH ×2 (06:41→22:44)
[2021-01-10] MEDS: ALBUTEROL SULF 2.5 MG/0.5ML(0.5%) NEB SOLN NEB PRN (06:41)
[2021-01-10] MEDS: ASCORBIC ACID 1,000 MG TAB PO SCH (09:30)
[2021-01-10] MEDS: CHOLECALCIFEROL (VITD3) 2,000 UNIT CAP/TAB PO SCH (09:30)
[2021-01-10] MEDS: ZINC SULFATE 220mg CAP or TAB PO SCH (09:30)
[2021-01-10] MEDS: ASPIRIN-DIPYRIDAMOLE (25/200MG) CAPSULE PO SCH ×2 (10:00→21:15)
[2021-01-10] MEDS: LORazepam 2MG/ML-1ML VIAL IV PRN ×2 (16:30→22:49)
[2021-01-10] MEDS ORDERED: HALOPERIDOL LACTATE 5 MG/ML INJ VIAL IM PRN (18:45)
[2021-01-10] MEDS: MIDAZOLAM DRIP 50 mg/50mL 50 ML IV SCH (18:45)
[2021-01-10] MEDS: fentaNYL Drip 2500mCg/250mlNS 250 ML IV SCH (18:45)
[2021-01-10] MEDS: PROPOFOL 100 ML IV SCH (18:45)
[2021-01-10] MEDS ORDERED: HALOPERIDOL LACTATE 5 MG/ML INJ VIAL IM ONE (18:45)
[2021-01-10] MEDS: hydrALAZINE HCL 20 MG/ML VL IV PRN (20:15)
[2021-01-10] MEDS: NOREPINEPHRINE 8 MG/250ML KIT 250 ML IV SCH (21:14)
[2021-01-10] MEDS: FAMOTIDINE (10MG/ML) 2ML VL IV SCH (21:15)
[2021-01-10] MEDS: ATORVASTATIN 20 MG TAB PO SCH (21:15)
[2021-01-11] VITALS (39 sets, daily range): BP systolic 112–176; BP diastolic 55–75
[2021-01-11 05:30] LABS: Basophils # (auto) 0 10 ^3/uL (0-0.2); Eosinophils # (auto) 0.1 10 ^3/uL (0-0.8); Hemoglobin 9.5 g/dL (13.5-17.5); Lymphocytes # (auto) 0.6 10 ^3/uL (0.4-5.4); Mean Corpuscular Volume 79.9 fL (80.0-100.0); White Blood Cell 7.2 10^3/uL (4.4-10.8)
[2021-01-11 05:33] LABS: Basophils % (auto) 0.6 % (0.0-2.0); Eosinophils % (auto) 1.8 % (0.0-7.0); Hematocrit 28.9 % (41.0-53.0); Lymphocytes % (auto) 8.2 % (10.0-50.0); Mean Corpuscular Hemoglobin 26.3 pg (28.0-32.0); Mean Corpuscular Hgb Conc. 32.9 g/dL (32.0-36.0); Monocytes # (auto) 1.3 10 ^3/uL (0-1.3); Monocytes % (auto) 17.7 % (0.0-12.0); Neutrophils # (auto) 5.2 10 ^3/uL (1.6-8.6); Neutrophils % (auto) 71.7 % (37.0-80.0); Nucleated Red Blood Cells % 0.1 %; Red Blood Cells 3.61 10^6/uL (4.5-5.90)
[2021-01-11 05:34] LABS: Red Cell Distribution Width 22.4 % (11.8-14.3)
[2021-01-11 05:37] LABS: Potassium 3.8 mmol/L (3.5-5.1)
[2021-01-11] MEDS: MEROPENEM 1GM IVPB 100 ML IV SCH ×3 (05:48→22:56)
[2021-01-11] MEDS: InsuLIN REG 1unit/0.01ml Soln (100units/ml) SC SCH ×4 (05:48→22:00)
[2021-01-11] MEDS: ACCU-CHEK COMFORT CURVE STRIP VI SCH ×4 (05:48→22:57)
[2021-01-11 06:30] LABS: Calcium 7.9 mg/dL (8.5-10.1)
[2021-01-11] MEDS: ALBUTEROL SULF 2.5 MG/0.5ML(0.5%) NEB SOLN NEB PRN (06:46)
[2021-01-11] MEDS: BUDESONIDE (INHALATION) 0.5 MG/2 ML NEB NEB SCH (06:47)
[2021-01-11] MEDS: ZINC SULFATE 220mg CAP or TAB PO SCH (09:33)
[2021-01-11] MEDS: ASPIRIN-DIPYRIDAMOLE (25/200MG) CAPSULE PO SCH ×2 (09:34→22:00)
[2021-01-11] MEDS: CHOLECALCIFEROL (VITD3) 2,000 UNIT CAP/TAB PO SCH (09:34)
[2021-01-11] MEDS: ASCORBIC ACID 1,000 MG TAB PO SCH (09:34)
[2021-01-11] MEDS: FAMOTIDINE (10MG/ML) 2ML VL IV SCH (22:56)
[2021-01-11] MEDS: ATORVASTATIN 20 MG TAB PO SCH (22:57)
[2021-01-12] MEDS: LORazepam 2MG/ML-1ML VIAL IV PRN (03:12)
[2021-01-12 06:01] VITALS: BP 152/75
[2021-01-12 06:14] LABS: Hematocrit 31.1 % (41.0-53.0); Hemoglobin 9.1 g/dL (13.5-17.5); Mean Corpuscular Hemoglobin 25.8 pg (28.0-32.0); Mean Corpuscular Hgb Conc. 29.1 g/dL (32.0-36.0); Mean Corpuscular Volume 88.8 fL (80.0-100.0); White Blood Cell 6.1 10^3/uL (4.4-10.8)
[2021-01-12] MEDS: InsuLIN REG 1unit/0.01ml Soln (100units/ml) SC SCH (06:18)
[2021-01-12] MEDS: MEROPENEM 1GM IVPB 100 ML IV SCH ×3 (06:18→23:05)
[2021-01-12] MEDS: ACCU-CHEK COMFORT CURVE STRIP VI SCH ×4 (06:19→23:06)
[2021-01-12 06:27] LABS: Basophils % (manual) 0 (0.0-2.0); Blast Cells 0; Metamyelocytes % 0; Myelocytes % 0; Promyelocytes % 0; Reactive Lymphocytes 0; Red Cell Distribution Width 23.2 % (11.8-14.3)
[2021-01-12 07:06] LABS: BUN/Creatinine Ratio 26.9; Calcium 7.6 mg/dL (8.5-10.1); Potassium 4.1 mmol/L (3.5-5.1)
[2021-01-12] MEDS: ALBUTEROL SULF 2.5 MG/0.5ML(0.5%) NEB SOLN NEB PRN ×2 (07:45→20:04)
[2021-01-12] MEDS: BUDESONIDE (INHALATION) 0.5 MG/2 ML NEB NEB SCH ×2 (07:45→20:04)
[2021-01-12 09:00] VITALS: BP 151/67
[2021-01-12] MEDS: ASPIRIN-DIPYRIDAMOLE (25/200MG) CAPSULE PO SCH ×2 (10:00→23:11)
[2021-01-12] MEDS: ZINC SULFATE 220mg CAP or TAB PO SCH (10:34)
[2021-01-12] MEDS: CHOLECALCIFEROL (VITD3) 2,000 UNIT CAP/TAB PO SCH (10:35)
[2021-01-12] MEDS: ASCORBIC ACID 1,000 MG TAB PO SCH (10:35)
[2021-01-12 11:38] LABS: Eosinophils % (manual) 2 (0-7); Lymphocytes % (manual) 10 (10.0-50.0); Monocytes % (manual) 7 (0-12)
[2021-01-12 11:39] LABS: Band Neutrophils % (manual) 5
[2021-01-12] MEDS ORDERED: D5W/SOD CHLO 0.9% 1,000 ML IV ONE (12:00)
[2021-01-12 13:00] VITALS: BP 148/64
[2021-01-12 17:11] VITALS: BP 168/86
[2021-01-12] MEDS: hydrALAZINE HCL 20 MG/ML VL IV PRN (17:11)
[2021-01-12 17:58] VITALS: BP 120/61
[2021-01-12 21:00] VITALS: BP 152/69
[2021-01-12] MEDS: FAMOTIDINE (10MG/ML) 2ML VL IV SCH (23:05)
[2021-01-12] MEDS: ATORVASTATIN 20 MG TAB PO SCH (23:06)
[2021-01-13 05:00] VITALS: BP 145/73
[2021-01-13] MEDS: ACCU-CHEK COMFORT CURVE STRIP VI SCH ×4 (06:16→22:48)
[2021-01-13] MEDS: BUDESONIDE (INHALATION) 0.5 MG/2 ML NEB NEB SCH ×2 (07:10→21:58)
[2021-01-13] MEDS: ALBUTEROL SULF 2.5 MG/0.5ML(0.5%) NEB SOLN NEB PRN ×2 (07:10→21:58)
[2021-01-13 08:52] VITALS: BP 156/81
[2021-01-13] MEDS: MEROPENEM 1GM IVPB 100 ML IV SCH ×2 (09:28→22:24)
[2021-01-13] MEDS: ASPIRIN-DIPYRIDAMOLE (25/200MG) CAPSULE PO SCH ×2 (09:28→22:24)
[2021-01-13] MEDS: ZINC SULFATE 220mg CAP or TAB PO SCH (09:28)
[2021-01-13] MEDS: ASCORBIC ACID 1,000 MG TAB PO SCH (09:29)
[2021-01-13] MEDS: CHOLECALCIFEROL (VITD3) 2,000 UNIT CAP/TAB PO SCH (09:29)
[2021-01-13 13:00] VITALS: BP 165/87
[2021-01-13] MEDS: hydrALAZINE HCL 20 MG/ML VL IV PRN (13:23)
[2021-01-13 17:00] VITALS: BP 142/65
[2021-01-13] MEDS: FAMOTIDINE (10MG/ML) 2ML VL IV SCH (22:24)
[2021-01-13] MEDS: ATORVASTATIN 20 MG TAB PO SCH (22:25)
[2021-01-13 22:26] VITALS: BP 142/87
[2021-01-14 05:32] VITALS: BP 159/78
[2021-01-14] MEDS: BUDESONIDE (INHALATION) 0.5 MG/2 ML NEB NEB SCH ×2 (06:50→21:44)
[2021-01-14] MEDS: ACCU-CHEK COMFORT CURVE STRIP VI SCH ×4 (07:01→21:50)
[2021-01-14 09:05] VITALS: BP 127/67
[2021-01-14] MEDS: MEROPENEM 1GM IVPB 100 ML IV SCH ×2 (10:00→21:49)
[2021-01-14] MEDS: ASPIRIN-DIPYRIDAMOLE (25/200MG) CAPSULE PO SCH ×2 (10:00→21:49)
[2021-01-14] MEDS: ZINC SULFATE 220mg CAP or TAB PO SCH (10:10)
[2021-01-14] MEDS: ASCORBIC ACID 1,000 MG TAB PO SCH (10:10)
[2021-01-14] MEDS: CHOLECALCIFEROL (VITD3) 2,000 UNIT CAP/TAB PO SCH (10:11)
[2021-01-14] MEDS ORDERED: CHOL1CAP47 PO (12:11)
[2021-01-14] MEDS ORDERED: ASCO10003 PO (12:11)
[2021-01-14 13:00] VITALS: BP 157/66
[2021-01-14 17:00] VITALS: BP 158/78
[2021-01-14] MEDS: ALBUTEROL SULF 2.5 MG/0.5ML(0.5%) NEB SOLN NEB PRN (21:44)
[2021-01-14 21:47] VITALS: BP 155/78
[2021-01-14] MEDS: ATORVASTATIN 20 MG TAB PO SCH (21:49)
[2021-01-14] MEDS: FAMOTIDINE (10MG/ML) 2ML VL IV SCH (21:49)
[2021-01-15 05:03] VITALS: BP 155/78
[2021-01-15] MEDS: BUDESONIDE (INHALATION) 0.5 MG/2 ML NEB NEB SCH (06:30)
[2021-01-15] MEDS: ACCU-CHEK COMFORT CURVE STRIP VI SCH (07:03)
[2021-01-15 09:00] VITALS: BP 156/99
== END 2021-01-15 10:10 | disposition home health service (06) | DRG 207 ==
LOC: ER 10:16 → EDBD 10:16 → TELE 18:03 → TELE-WESTW 20:51 → ICU WEST 01-03 18:18 → TELE-WESTW 01-11 19:58
PROVIDERS: ADMIT Nurse Practitioner Acute Care; ATTEND Internal Medicine Pulmonary Disease
PROC: XW13325 Transfusion of Convalescent Plasma (Nonautologous) into Peripheral Vein, Percutaneous Approach, New Technology Group 5 (ICD-10-PCS; 2020-12-27)
PROC: XW033E5 Introduction of Remdesivir Anti-infective into Peripheral Vein, Percutaneous Approach, New Technology Group 5 (ICD-10-PCS; 2020-12-27)
PROC: XW033H5 Introduction of Tocilizumab into Peripheral Vein, Percutaneous Approach, New Technology Group 5 (ICD-10-PCS; 2021-01-01)
PROC: 5A1955Z Respiratory Ventilation, Greater than 96 Consecutive Hours (ICD-10-PCS; principal; 2021-01-03)
PROC: 0BH17EZ Insertion of Endotracheal Airway into Trachea, Via Natural or Artificial Opening (ICD-10-PCS; 2021-01-03)
DX: U07.1 COVID-19 (principal); J96.01 Acute respiratory failure with hypoxia; J12.82 Pneumonia due to coronavirus disease 2019; G93.41 Metabolic encephalopathy; A41.9 Sepsis, unspecified organism; R65.21 Severe sepsis with septic shock; C18.9 Malignant neoplasm of colon, unspecified; E44.0 Moderate protein-calorie malnutrition; G93.1 Anoxic brain damage, not elsewhere classified; J44.0 Chronic obstructive pulmonary disease with (acute) lower respiratory infection; R64 Cachexia; Z68.1 Body mass index [BMI] 19.9 or less, adult; E87.0 Hyperosmolality and hypernatremia; C79.9 Secondary malignant neoplasm of unspecified site; R13.10 Dysphagia, unspecified; F41.9 Anxiety disorder, unspecified; D50.9 Iron deficiency anemia, unspecified; D89.839 Cytokine release syndrome, grade unspecified; E11.9 Type 2 diabetes mellitus without complications; E78.5 Hyperlipidemia, unspecified; I11.0 Hypertensive heart disease with heart failure; I50.9 Heart failure, unspecified; Z79.84 Long term (current) use of oral hypoglycemic drugs; Z79.899 Other long term (current) drug therapy; Z86.73 Personal history of transient ischemic attack (TIA), and cerebral infarction without residual deficits; Z88.0 Allergy status to penicillin
CPT/HCPCS: 36415; 36600; 70450; 71045; 71275; 80048; 80053; 82306; 82728; 82805; 82962; 83036; 83605; 83615; 83735; 84443; 84484; 85007; 85025; 85027; 85379; 85610; 85730; 86141; 86850; 86900; 86901; 87040; 87070; 87081; 87205; 87426; 87804; 92610; 93005; 94002; 94003; 94640; 94644; 96361; 96365; 96375; 97110; 97163; 97530; A4565; G0378; J0330; J0696; J1100; J1815; J2185; J2250; J2405; J2704; J3490; J7060